=== PATIENT | female | born 1995 | race Caucasian/White ===

== ENCOUNTER 2018-09-22 23:19 | Emergency (ER) | payer MEDICAID, SELFPAY ==
[2018-09-22 23:23] VITALS: BP 144/84; PULSE 94; RESP 16; TEMP 36.6; O2SAT 98; BMI 44.3
[2018-09-23] MEDS: hydrOXYzine PAM 25 MG Capsule PO (00:16)
[2018-09-23 00:23] LABS: Absolute Lymphocyte Count 3.55 X10^3/uL (0.83-4.51); Basophil# 0.05 X10^3/uL; Basophil% 0.4 % (0-1); Eosinophil# 0.35 X10^3/uL; Eosinophils% 2.6 % (0-5); Hematocrit 39.1 % (37-47); Lymphocyte # 3.55 X10^3/ul (4.0); Lymphocyte % 26.5 % (19-41); Mean Corp Hgb Conc 33.2 g/dL (32-36); Mean Corpuscular Hgb 28.9 pg (27.0-32.0); Mean Corpuscular Volume 86.9 fL (81-99); Mean Platelet Vol. 9.4 fl (6.2-12.0); Monocyte# 0.94 X10^3/uL; NRBC Flagged by Analyzer 0 % (0-5); Neutrophil # 8.48 X10^3/uL (2.7-7.7); Neutrophil % 63.3 % (47-70); Platelet Count 279 K/mm3 (150-450); RBC Distribution Width CV 12.2 % (11.6-14.6); RBC Distribution Width SD 38.9 fl (35.1-43.9); White Blood Count 13.4 K/mm3 (4.4-11.0)
[2018-09-23 00:31] LABS: Amphetamine Urine VISTA NEGATIVE (<1000 ng/mL); Barbiturate Urine VISTA NEGATIVE (< 200 ng/mL); Benzodiazepine Urine VISTA NEGATIVE (< 200 ng/mL); Cocaine Urine VISTA NEGATIVE (< 300 ng/mL); Ecstacy Urine VISTA NEGATIVE (< 500 ng/mL); Methadone Urine VISTA NEGATIVE (< 300 ng/mL); PCP Urine VISTA NEGATIVE (< 25 ng/mL); THC Urine VISTA POSITIVE (< 50 ng/mL); Vista UDS pH Range 6
[2018-09-23 00:41] LABS: Anion Gap 5 (5-15); BUN 9 mg/dL (7-18); BUN/Creat Ratio 14.9 RATIO (10-20); Calcium,Total 8.4 mg/dL (8.5-10.1); Chloride 109 mmol/L (98-107); EST Glomerular Filtration Rate 128 mL/min (>60); Est Glom Filt Rate - Afr Amer 155 mL/min (>60); Estimated Creatinine Clearance 139.38 ml/min; Glucose 94 mg/dL (74-106); Potassium 3.5 mmol/L (3.5-5.1); Sodium Level 138 mmol/L (136-145)
[2018-09-23 00:45] LABS: Internal QC Validated? YES +Cl - CLEAR BKGD; Pregnancy, Serum, hCG Quali. NEGATIVE Negative
--- NOTE | 2018-09-23 00:53 | NURSING ---
CALLED CRISIS AT [id number]
[2018-09-23 01:01] VITALS: PULSE 77; RESP 16; O2SAT 97
--- NOTE | 2018-09-23 01:42 | ED.RN ---
crisis here to see patient at this time
--- NOTE | 2018-09-23 01:48 | ED.VISSUMM ---
- ER Visit Summary Date of Service: 09/23/18 Chief Complaint: Suicidal ideation History of Present Illness: The patient is a 23 F who presents with suicidal thoughts. She has a history of depression and anxiety. She states she has been off of her antidepressant for about 2 weeks. Over last 3 days she has had suicidal thoughts but denies having any plan. She states she is not actively suicidal that she does not intend act. She does not feel like she is a risk to herself. She states she did restart her antidepressant today and feels somewhat better. She states she really just think she needs medicated. She also is asking for help with a local psychiatrist as she does not currently have a psychiatrist locally. Physical Examination: Afebrile vitals unremarkable Patient cooperative smiling and laughing during the history and exam Heart regular rate and rhythm Lungs are clear Abdomen soft Alert Patient endorses suicidal thoughts without plan. Test Results: Labs notable for white count 13.4. negative. Drug screen positive for cannabinoids. Alcohol normal. Emergency Department Course and Treatment: Patient was requesting something for anxiety and was given Vistaril. Patient was evaluated by crisis. We agreed the patient is safe for a safety plan and close outpatient follow-up. The patient was contracted for safety and has an appointment tomorrow with the counseling center. Patient discharged. Treatment Plan: [] Disposition: Discharge Impression: Depression Suicidal ideation This note was generated with [employer] dictation software. It may contain incorrect words, spelling, and punctuation that were not noted in review of the chart prior to signing ED Disposition - Plan for ED Patient: Referrals: Care Physician,No Primary [Primary Care Provider] -
--- NOTE | 2018-09-23 02:17 | ED.DEP ---
ED Disposition - Plan for ED Patient: Instructions: Depression, CONTRACT, No Harm Referrals: Care Physician,No Primary [Primary Care Provider] - Counseling,Center [GROUP OF PHYSICIANS] -
[2018-09-23 02:38] VITALS: BP 137/80; PULSE 82; RESP 16; O2SAT 96
== END 2018-09-23 04:31 | disposition home or self-care (01) ==
PROVIDERS: Emergency Provider Emergency Medicine
DX: F32.9 Major depressive disorder, single episode, unspecified (principal); R45.851 Suicidal ideations; F41.9 Anxiety disorder, unspecified; F12.90 Cannabis use, unspecified, uncomplicated; Z72.0 Tobacco use
CPT/HCPCS: 36415; 80048; 80307; 80320; 84703; 85025; 99284; A4216; G0480

== ENCOUNTER 2018-11-02 21:35 | Emergency (ER) | payer MEDICAID, SELFPAY ==
[2018-11-02 21:36] VITALS: BP 124/74; PULSE 73; RESP 18; TEMP 36.1; O2SAT 98; BMI 43.8
--- NOTE | 2018-11-02 21:50 | ED.VISSUMM ---
- ER Visit Summary Date of Service: 11/02/18 Chief Complaint: Back pain History of Present Illness: The patient is a 23 F who has left lumbar back pain. Started 4 days ago. She was lifting things when this started. She has sharp pain in the left lumbar region. Does not radiate. No bowel or bladder incontinence. No numbness or tingling. She states it feels like spasms. She has tried ibuprofen, Tylenol, ice and heat without any relief. Physical Examination: Vital signs reviewed. Back exam reveals left lumbar paraspinal tenderness to palpation. There is no midline tenderness. Her neurologic exam is normal. Test Results: None performed Emergency Department Course and Treatment: Patient will be treated with Norflex and Toradol here. Naproxen and Flexeril for home. She will continue ice and heat Treatment Plan: [] Disposition: Discharge Impression: lumbar strain This note was generated with [employer] dictation software. It may contain incorrect words, spelling, and punctuation that were not noted in review of the chart prior to signing ED Disposition - Plan for ED Patient: Referrals: [facility] Doctor,Out of [Primary Care Provider] -
--- NOTE | 2018-11-02 21:51 | ED.DEP ---
ED Disposition - Plan for ED Patient: Disposition: Home or Assisted Living Instructions: BACK PAIN (Acute or Chronic) Prescriptions: cycloBENZAPRine HCl [Flexeril] 10 mg PO TID PRN #20 tab PRN Reason: Muscle Spasm Prescription Printed Naproxen [Naprosyn] 500 mg PO BID PRN #20 tab Prescription Printed Referrals: [facility] Doctor,Out of [Primary Care Provider] -
[2018-11-02] MEDS: Ketorolac 60 MG/2 ML Vial IM (21:56)
[2018-11-02] MEDS: Orphenadrine 60 MG/2 ML Ampul IM (21:56)
== END 2018-11-02 22:39 | disposition home or self-care (01) ==
PROVIDERS: Emergency Provider Emergency Medicine
DX: S39.012A Strain of muscle, fascia and tendon of lower back, initial encounter (principal); X50.9XXA Other and unspecified overexertion or strenuous movements or postures, initial encounter; Y93.9 Activity, unspecified; Y92.9 Unspecified place or not applicable; F32.9 Major depressive disorder, single episode, unspecified; Z79.899 Other long term (current) drug therapy; Z72.0 Tobacco use
CPT/HCPCS: 96372; 99282

== ENCOUNTER 2018-11-24 17:46 | Emergency (ER) | payer MEDICAID, SELFPAY ==
[2018-11-24 17:48] VITALS: BP 124/68; PULSE 101; RESP 16; TEMP 36.9; O2SAT 95; BMI 44.6
--- NOTE | 2018-11-24 18:41 | CT_ITS ---
HISTORY:UMBILICAL PAIN,PT STATES SHE HAS KNOWN HERNIA,ELEVATED WBC,PREG TEST WAS NEGATIVEHX:ASTHMA UMBILICAL PAIN,PT STATES SHE HAS KNOWN HERNIA,ELEVATED WBC,PREG TEST WAS NEGATIVEHX:ASTHMA TECHNIQUE: Helically acquired images were obtained of the abdomen and pelvis following IV contrast. A radiation dose optimization technique was used for this scan. IV Contrast dosage and agent:100ML Isovue 300 Oral contrast: Yes COMPARISON: None FINDINGS: # of images incl. paperwork: 477 LOWER CHEST: Lung bases are clear. No cardiomegaly or pericardial effusion observed. LIVER: Homogeneous. No focal mass. Hepatomegaly. GALLBLADDER AND BILIARY TREE: No calcified gallstones. There is no gallbladder distension or wall edema. No intra- or extrahepatic biliary ductal dilation. KIDNEYS AND URETERS: Normal renal size and position. There is no hydronephrosis. ADRENAL GLANDS: Non-enlarged. SPLEEN: Normal size without focal cystic or solid mass. PANCREAS: No focal cystic or solid mass. BOWEL: The stomach is fluid-filled Small bowel is unremarkable There is no mechanical obstruction No diverticulitis The appendix is unremarkable LYMPH NODES: No enlarged mesenteric or retroperitoneal lymph nodes. PERITONEUM: No ascites or free air. No other fluid collection. VESSELS: Aorta is non-dilated. URINARY BLADDER: Incompletely distended, otherwise grossly unremarkable. REPRODUCTIVE ORGANS: There is a right adnexal cyst measuring approximately 1.7 cm ABDOMINAL WALL: Fat-containing umbilical hernia. There is fat stranding within the hernia. The neck measures approximately 1.2 cm craniocaudad by approximately 1 cm transverse BONES: no acute osseous abnormality. There is an enthesophyte at the insertion of the iliopsoas tendon on the lesser tuberosity of the right femur CT/Abdomen/Pelvis WITH Contrast IMPRESSION: Fat-containing umbilical hernia with fat stranding within the hernia. Correlate clinically for reducibility Hepatomegaly Right adnexal cyst measuring 1.7 cm Individualized dose optimization techniques were used for this CT. at 2112 Reported and signed by: Valerie Bland DO Electronically Signed: Valerie Bland DO at 21:11 EDT Tel , Service support ,
--- NOTE | 2018-11-24 18:42 | ED.DCSUM_ITS ---
- ER Visit Summary Date of Service: 11/24/18 Chief Complaint: Umbilical hernia pain History of Present Illness: The patient is a 23 F who presents with umbilical hernia pain that began yesterday. Patient states she has had the umbilical hernia for quite some time. Patient states the pain began last night. Patient describes her pain is sharp. Patient states her pain is worse with bending forward. Patient states she had one episode of nausea and vomiting yesterday. Patient also states she had an episode of diarrhea yesterday. Patient denies any dysuria or hematuria. Patient admits to subjective fevers and chills. Physical Examination: Vital signs are stable. Patient is afebrile. Patient is in no acute distress. Oral mucosa is pink and moist. Neck is supple. Trachea is midline. There is no JVD noted. Heart was regular rate and rhythm. Lungs are clear and equal bilaterally. Abdomen is soft. Bowel sounds are normal. There is tenderness over the umbilical area with an umbilical hernia noted. There is no erythema. Cranial nerves II through XII are intact. There are no focal motor or sensory deficits noted. Test Results: CBC showed a slight leukocytosis of 13.6. Comprehensive metabolic profile was essentially within normal limits. Serum hCG was negative. CT scan of the abdomen and pelvis was obtained. There is a fat-containing umbilical hernia but there is no bowel entrapment. Emergency Department Course and Treatment: Patient was given IV fluids, morphine, and Zofran. Patient was given a repeat dose of morphine. Patient was feeling better after this. Ice pack was applied to the umbilical area. Patient was laid flat. The hernia was able to be reduced. She felt better after this. Patient was referred to Dr. More for general surgery. Patient was instructed to follow-up with her primary care physician as well as Dr. More in 5 to 7 days. Patient understood and was agreeable with the plan. All questions were answered. Disposition: Discharge home Impression: 1. Umbilical hernia This note was generated with [employer] dictation software. It may contain incorrect words, spelling, and punctuation that were not noted in review of the chart prior to signing ED Disposition - Plan for ED Patient: Disposition: Home or Assisted Living Diagnosis: Umbilical hernia Instructions: HERNIA (Inguinal, Ventral, Umbilical) Referrals: [facility] Doctor,Out of [Primary Care Provider] - 5-7 Days Aba More MD [STAFF PHYSICIAN] - 5-7 Days
[2018-11-24 19:11] LABS: Absolute Lymphocyte Count 3.65 X10^3/uL (0.83-4.51); Absolute Neutrophil Count 7.8 X10^3/uL (2.0-7.7); Basophil# 0.05 X10^3/uL; Basophil% 0.4 % (0-1); Eosinophil# 0.81 X10^3/uL; Hematocrit 44.8 % (37-47); Hemoglobin 14.6 g/dL (12.0-15.0); Lymphocyte # 3.65 X10^3/ul (4.0); Lymphocyte % 26.9 % (19-41); Mean Corp Hgb Conc 32.6 g/dL (32-36); Mean Platelet Vol. 9.6 fl (6.2-12.0); Monocyte# 1.17 X10^3/uL; Monocyte% 8.6 % (0-10); NRBC Flagged by Analyzer 0 % (0-5); Neutrophil # 7.83 X10^3/uL (2.7-7.7); Neutrophil % 57.8 % (47-70); Platelet Count 292 K/mm3 (150-450); RBC Distribution Width CV 12.9 % (11.6-14.6); RBC Distribution Width SD 40.2 fl (35.1-43.9); Red Blood Count 5.21 M/mm3 (4.2-5.4); White Blood Count 13.6 K/mm3 (4.4-11.0)
[2018-11-24] MEDS: Ondansetron 4 MG/2 ML Vial IV (19:15)
[2018-11-24] MEDS: Morphine 4 MG/ML Syringe IV ×2 (19:15→21:13)
[2018-11-24 19:20] LABS: ALB/GLOB Ratio 0.9 RATIO (0.9-2.4); AST(SGOT) 16 U/L (15-37); Alanine Aminotransfer ALT/SGPT 24 U/L (13-56); Albumin, Serum 3.3 g/dL (3.2-5.0); Alkaline Phosphatase 48 U/L (45-117); Anion Gap 5 (5-15); BUN 10 mg/dL (7-18); BUN/Creat Ratio 15.8 RATIO (10-20); Calcium,Total 8.8 mg/dL (8.5-10.1); Chloride 110 mmol/L (98-107); Creatinine, Serum 0.63 mg/dL (0.55-1.02); EST Glomerular Filtration Rate 122 mL/min (>60); Est Glom Filt Rate - Afr Amer 147 mL/min (>60); Estimated Creatinine Clearance 132.75 ml/min; Globulin 3.6 g/dL (2.2-4.2); Glucose 82 mg/dL (74-106); Potassium 3.6 mmol/L (3.5-5.1); Protein, Total 6.9 g/dL (6.4-8.2); Sodium Level 142 mmol/L (136-145)
[2018-11-24 19:24] VITALS: RESP 18
[2018-11-24 19:32] VITALS: PULSE 82; RESP 20
[2018-11-24] MEDS: Albuterol 2.5 MG/3 ML VIAL.NEB. INHALATION (19:32)
[2018-11-24 20:44] LABS: Internal QC Validated? YES +Cl - CLEAR BKGD; Pregnancy, Serum, hCG Quali. NEGATIVE Negative
[2018-11-24 22:42] VITALS: BP 99/68; PULSE 84; RESP 16; O2SAT 96
== END 2018-11-24 22:43 | disposition home or self-care (01) ==
PROVIDERS: Emergency Provider Emergency Medicine
DX: K42.9 Umbilical hernia without obstruction or gangrene (principal); J34.89 Other specified disorders of nose and nasal sinuses; R05 Cough; R68.83 Chills (without fever); R11.2 Nausea with vomiting, unspecified; R19.7 Diarrhea, unspecified; E66.9 Obesity, unspecified; F32.9 Major depressive disorder, single episode, unspecified; Z79.899 Other long term (current) drug therapy
CPT/HCPCS: 74177; 80053; 84703; 85025; 94640; 96374; 96375; 96376; 99283; Q9967; A4216; J2405

== ENCOUNTER 2019-04-17 18:51 | Emergency (ER) | payer MEDICAID, SELFPAY ==
[2019-04-17 18:52] VITALS: BP 142/83; PULSE 90; RESP 17; TEMP 37.1; O2SAT 97; BMI 44.4
--- NOTE | 2019-04-17 19:38 | ED.DCSUM_ITS ---
History of Present Illness Chief Complaint: Weakness Informant: Patient Onset: Days - 3 days Current Severity: Mild Maximum Severity: Moderate Narrative: Patient presents with 3-day history of body aches, subjective fever, chills, diarrhea. She works at a [employer] where she reports multiple residents have had influenza. Past Medical History - Allergies and Home Meds Allergies/Adverse Reactions: Allergies sulfamethoxazole [From Bactrim] Adverse Reaction (Verified 04/17/19 18:51) Hives trimethoprim [From Bactrim] Adverse Reaction (Verified 04/17/19 18:51) Hives Primary Care Physician: Daniele Doctor,Out of [NON-STAFF] - Lives: Spouse/ Significant Other Smoking Status: Current every day smoker Review of Systems General: Reports: Chills, Fever, Subjective Eyes: Denies: Visual changes - bilaterally ENT: Denies: Bilateral ear pain Cardiovascular: Denies: Chest pain Respiratory: Reports: Cough - Minimal cough, Sputum Gastrointestinal: Reports: Diarrhea. Denies: Abdominal pain, Nausea, Vomiting Musculoskeletal: Reports: Myalgias Skin: Denies: Rash Neurological: Denies: Headache Endocrine: Denies: Polyuria, Polydipsia Allergy: Denies: Uticaria Physical Exam Vital Signs/Narrative: Vital Signs Temp Pulse Resp BP Pulse Ox 04/17/19 18:52 98.8 F 90 17 142/83 H 97 Inital Vital Signs reviewed: Yes General: Well nourished, Well developed Head: Normocephalic ENT: Moist mucous membranes Neck: Supple Cardiovascular: Regular rate, Regular rhythm Respiratory: No distress, CTA bilaterally Abdomen: Soft, Nontender, Normal bowel sounds Skin: Normal color Neurological: Alert, Oriented x3 Psychological: Normal affect Diagnostic/Tx/Re-eval Chest X-Ray - ED: 1 View, Read by ED Physician, Normal, Heart, Lungs, Mediastinum 04/17/19 21:04 Chest 1 View (Portable) [RAD] Stat 04/17/19 19:43 Mucosa - Nose Influenza Types A,B Direct FA (YUMIKO) - Final Laboratory Results 04/17/19 04/17/19 04/17/19 19:45 20:00 20:00 WBC 6.6 RBC 5.11 Hgb 14.4 Hct 44.5 MCV 87.1 MCH 28.2 MCHC 32.4 RDW Std Deviation 39.7 RDW Coeff of Franco 12.4 Plt Count 220 MPV 10.1 Immature Gran % (Auto) 0.200 Neut % (Auto) 42.5 L Lymph % (Auto) 43.3 H [place] % (Auto) 12.2 H Eos % (Auto) 1.5 Baso % (Auto) 0.3 Absolute Neuts (auto) 2.8 Absolute Lymphs (auto) 2.87 Nucleated RBC % 0 Sodium 139 Potassium 3.7 Chloride 109 H Carbon Dioxide 27.0 Anion Gap 3 L BUN 10 Creatinine 0.89 Estim Creat Clear Calc 93.97 Est GFR (MDRD) Af Amer 98 Est GFR (MDRD) Non-Af 81 BUN/Creatinine Ratio 11.2 Glucose 75 Calcium 8.7 Serum , Qual Urine Color Yellow Urine Clarity Sl. Cloudy Urine pH 5.0 Ur Specific [place] 1.025 Urine Protein 30 H Urine Glucose (UA) Normal Urine Ketones 5 H Urine Occult Blood 10 H Urine Nitrite Negative Urine Bilirubin Negative Urine Urobilinogen 1 H Ur Leukocyte Esterase 25 H Urine RBC 0-5 SEEN Urine WBC 0-5 SEEN Ur Squamous Epith Cells 10-25 SEEN Urine Bacteria 2+ Urine Mucus 0 SEEN 04/17/19 20:00 WBC RBC Hgb Hct MCV MCH MCHC RDW Std Deviation RDW Coeff of Franco Plt Count MPV Immature Gran % (Auto) Neut % (Auto) Lymph % (Auto) [place] % (Auto) Eos % (Auto) Baso % (Auto) Absolute Neuts (auto) Absolute Lymphs (auto) Nucleated RBC % Sodium Potassium Chloride Carbon Dioxide Anion Gap BUN Creatinine Estim Creat Clear Calc Est GFR (MDRD) Af Amer Est GFR (MDRD) Non-Af BUN/Creatinine Ratio Glucose Calcium Serum , Qual NEGATIVE Urine Color Urine Clarity Urine pH Ur Specific [place] Urine Protein Urine Glucose (UA) Urine Ketones Urine Occult Blood Urine Nitrite Urine Bilirubin Urine Urobilinogen Ur Leukocyte Esterase Urine RBC Urine WBC Ur Squamous Epith Cells Urine Bacteria Urine Mucus - Medical Decision Making Patient is given IV fluids and Toradol. She is also given a DuoNeb. On repeat evaluation patient is resting comfortably. Test results are discussed with her. She is given a work note for off work until free of fever for 24 hours. ED Disposition - Plan for ED Patient: Disposition: Home or Assisted Living Diagnosis: Viral syndrome Instructions: VIRAL SYNDROME (Adult) Referrals: [facility],Out of [NON-STAFF] - 3-5 Days if not improving
[2019-04-17] MEDS: 0.9% Normal Saline 1,000 ML 1000 ML IV (19:53)
[2019-04-17] MEDS: Ketorolac 30 MG/ML Syringe IV (19:53)
[2019-04-17 20:03] LABS: Mucous, Urine 0 SEEN /hpf (<or=2+)
[2019-04-17 20:04] LABS: Color, Urine Yellow (Yellow); Glucose, Dipstick Normal (Normal); Ketone-Dipstick 5 mg/dl (Negative); Leukocyte Esterase-Dipstick 25 /ul (Negative); Nitrite-Dipstick Negative (Negative); Occult Blood-Urine 10 /ul (Negative); Protein-Dipstick 30 mg/dl (Negative); Specific Gravity, Urine 1.025 (1.002-1.030); Urine Bilirubin Dipstick Negative (Negative); Urine Clarity Sl. Cloudy (Clear); Urine Urobilinogen 1 mg/dl (Normal)
[2019-04-17 20:05] VITALS: PULSE 86; RESP 20
[2019-04-17 20:05] LABS: Absolute Lymphocyte Count 2.87 X10^3/uL (0.83-4.51); Absolute Neutrophil Count 2.8 X10^3/uL (2.0-7.7); Basophil# 0.02 X10^3/uL; Basophil% 0.3 % (0-1); Eosinophils% 1.5 % (0-5); Hematocrit 44.5 % (37-47); Hemoglobin 14.4 g/dL (12.0-15.0); Lymphocyte # 2.87 X10^3/ul (4.0); Lymphocyte % 43.3 % (19-41); Mean Corp Hgb Conc 32.4 g/dL (32-36); Mean Corpuscular Hgb 28.2 pg (27.0-32.0); Mean Corpuscular Volume 87.1 fL (81-99); Mean Platelet Vol. 10.1 fl (6.2-12.0); Monocyte# 0.81 X10^3/uL; Monocyte% 12.2 % (0-10); NRBC Flagged by Analyzer 0 % (0-5); Neutrophil # 2.82 X10^3/uL (2.7-7.7); Neutrophil % 42.5 % (47-70); Platelet Count 220 K/mm3 (150-450); RBC Distribution Width CV 12.4 % (11.6-14.6); RBC Distribution Width SD 39.7 fl (35.1-43.9); Red Blood Count 5.11 M/mm3 (4.2-5.4); White Blood Count 6.6 K/mm3 (4.4-11.0)
[2019-04-17] MEDS: Ipratropium/Albuterol Sulfate 3 ML AMPUL.NEB INHALATION (20:05)
[2019-04-17 20:10] LABS: Bacteria 2+ /hpf (None Seen); Red Blood Cells-Urine 0-5 SEEN /hpf (0-5); Squamous Epithelial Cells - UA 10-25 SEEN /hpf (5-10); White Blood Cells 0-5 SEEN /hpf (0-5)
[2019-04-17 20:13] LABS: Internal QC Validated? YES +Cl - CLEAR BKGD; Pregnancy, Serum, hCG Quali. NEGATIVE Negative
[2019-04-17 20:17] LABS: BUN 10 mg/dL (7-18); Creatinine, Serum 0.89 mg/dL (0.55-1.02); Estimated Creatinine Clearance 93.97 ml/min; Glucose 75 mg/dL (74-106)
[2019-04-17 20:18] LABS: Anion Gap 3 (5-15); BUN/Creat Ratio 11.2 RATIO (10-20); Calcium,Total 8.7 mg/dL (8.5-10.1); Chloride 109 mmol/L (98-107); EST Glomerular Filtration Rate 81 mL/min (>60); Est Glom Filt Rate - Afr Amer 98 mL/min (>60); Potassium 3.7 mmol/L (3.5-5.1); Sodium Level 139 mmol/L (136-145)
--- NOTE | 2019-04-17 21:04 | RAD_ITS ---
STUDY: X-RAY CHEST REASON FOR EXAM: Female, 23 years old. FLU LIKE SYMPTOMS TECHNIQUE: Single AP portable view of the chest. COMPARISON: None. FINDINGS: The lungs are clear and expanded. There is no demonstrated pleural abnormality. Normal size heart. Normal mediastinum and willie. Normal visualized pulmonary arteries. Normal visualized aortic arch and descending thoracic aorta. Normal visualized thoracic spine. Normal visualized ribs, clavicles, and shoulders. There is no demonstrated abnormality of the visualized soft tissue structures of the upper abdomen. RAD/Chest 1 View (Portable) IMPRESSION: Normal x-ray examination of the chest. Electronically Signed: Ian Rodríguez DO at 21:31 EST Tel , Service support ,
[2019-04-17 21:17] VITALS: BP 134/75; PULSE 78
== END 2019-04-17 21:19 | disposition home or self-care (01) ==
PROVIDERS: Emergency Provider Emergency Medicine
DX: B34.9 Viral infection, unspecified (principal); R68.83 Chills (without fever); R05 Cough; R19.7 Diarrhea, unspecified; M79.10 Myalgia, unspecified site; F17.200 Nicotine dependence, unspecified, uncomplicated
CPT/HCPCS: 71045; 80048; 81001; 84703; 85025; 87804; 94640; 96361; 96374; 99283; J7030; A4216

== ENCOUNTER 2019-08-08 04:43 | Emergency (ER) | payer MEDICAID, SELFPAY ==
[2019-08-08 04:44] VITALS: BP 145/85; PULSE 72; RESP 18; TEMP 36.7; O2SAT 99; BMI 47.0
--- NOTE | 2019-08-08 04:59 | ED.VIS.GEN ---
History of Present Illness Chief Complaint: Anxiety Informant: Patient Onset: Today Current Severity: Mild Maximum Severity: Moderate Narrative: Patient presents via EMS secondary to anxiety. Patient states she is a history of anxiety. She had previously been on medical marijuana but 3 months ago switched to Xanax. Last week her doctor increased her dose to 2 mg twice a day as needed. She filled and picked up the prescription on August 04. Patient states that she awoke this morning with a panic attack. She reached for her pills that she keeps on her bedside stand and there were none there. She then got up and went to her pharmacy bag where she states the 2 full bottles were that she just picked up and they were missing. Patient states that she and her ex- were outside with her daughter earlier in the day and she is concerned someone came in and stole the medication. She states that there is nothing else missing that she has noticed from her home. - Past Medical History (1) Cerebral palsy Status: Chronic (2) Anxiety Status: Chronic (3) Depression Status: Chronic (4) Asthma Status: Chronic Past Medical History - Allergies and Home Meds Allergies/Adverse Reactions: Allergies sulfamethoxazole [From Bactrim] Adverse Reaction (Verified 08/08/19 04:47) Hives trimethoprim [From Bactrim] Adverse Reaction (Verified 08/08/19 04:47) Hives Primary Care Physician: NOT,DEFINED [Primary Care Provider] - Prior records reviewed: Yes Lives: With Family Smoking Status: Current some day smoker Review of Systems General: Denies: Chills, Fever Eyes: Denies: Visual changes - bilaterally ENT: Denies: Bilateral ear pain Cardiovascular: Denies: Chest pain Respiratory: Reports: Dyspnea. Denies: Cough Gastrointestinal: Denies: Abdominal pain, Nausea, Vomiting, Diarrhea Musculoskeletal: Denies: Extremity Pain Skin: Denies: Rash Psych: Reports: Anxiety Hematologic: Denies: Easy bruising, Easy bleeding Allergy: Denies: Uticaria Physical Exam Vital Signs/Narrative: Vital Signs Temp Pulse Resp BP Pulse Ox 08/08/19 04:44 98.1 F 72 18 145/85 H 99 Inital Vital Signs reviewed: Yes General: Well nourished, Well developed Head: Normocephalic ENT: Moist mucous membranes Neck: Supple Cardiovascular: Regular rate, Regular rhythm Respiratory: No distress, CTA bilaterally Abdomen: Soft, Nontender Extremities: Nontender Skin: Normal color Neurological: Alert, Oriented x3, Normal Strength, Normal Sensation Psychological: - - Anxious Diagnostic/Tx/Re-eval - Medical Decision Making Patient's most recent prescription was verified to the external medication review in [employer]. She is given 2 mg of p.o. Xanax here. I did advise her that I could not provide a refill for her. She needs to contact her physician in the morning. ED Disposition - Plan for ED Patient: Disposition: Home or Assisted Living Diagnosis: Anxiety Instructions: ED Panic Attack
[2019-08-08] MEDS: ALPRAZolam 0.5 MG Tablet 2 MG PO (05:09)
[2019-08-08 05:37] VITALS: BP 146/89; PULSE 77; RESP 17; O2SAT 99
--- NOTE | 2019-08-08 15:00 | CM.ED ---
SOCIAL WORK INFORMANT: DR. ARNETT REASON FOR REFERRAL: RESOURCES PATIENT WAS SEEN IN ED EARLY THIS MORNING. REFERRAL FOR RESOURCES. SPOKE WITH PATIENT OVER THE PHONE. PATIENT DISCUSSED MENTAL HEALTH HISTORY. PATIENT STATING IS PRESCRIBED XANAX AND IT WAS RECENTLY STOLEN FROM HER HOME. PATIENT REPORTS PLANS TO OBTAIN A LOCK BOX THIS DAY. PATIENT STATES HAS ALREADY BEEN IN CONTACT WITH [facility] [employer] AND HAS BEEN IN COUNSELING WITH THEM BEFORE. REVIEWED [facility] AND PROVIDED PATIENT WITH CONTACT NUMBERS FOR [facility] AND [facility] PER REQUEST. THIS WORKER OFFERED TO MAIL OUT RESOURCE LISTS. PATIENT THANKFUL FOR ALL INFORMATION. NO FURTHER QUESTIONS OR CONCERNS AT THIS TIME. RESOURCE LIST MAILED TO PATIENT THIS DAY. Kellee ZUNIGA, ASSEMBLER GARMENT FORM, TEA AND SPICE SUPERVISOR.
== END 2019-08-08 06:01 | disposition home or self-care (01) ==
PROVIDERS: Emergency Provider Emergency Medicine
DX: F41.9 Anxiety disorder, unspecified (principal); F32.9 Major depressive disorder, single episode, unspecified; G80.9 Cerebral palsy, unspecified; J45.909 Unspecified asthma, uncomplicated; Z79.899 Other long term (current) drug therapy; F17.200 Nicotine dependence, unspecified, uncomplicated
CPT/HCPCS: 99284

== ENCOUNTER 2019-08-22 12:36 | Emergency (ER) | payer MEDICAID, SELFPAY ==
[2019-08-22 12:38] VITALS: BP 114/82; PULSE 69; RESP 16; TEMP 37.1; O2SAT 98; BMI 45.3
--- NOTE | 2019-08-22 12:57 | ED.DCSUM_ITS ---
- ER Visit Summary Date of Service: 08/22/19 Chief Complaint: [Back pain] History of Present Illness: The patient is a 24 F [presents to the emergency department complaint of back pain is her about a month and a half ago. Patient states that she was doing some gardening and carrying some 45 pound bags. Jose lópez's been seen by her chiropractor who told her the pain was coming from her L4-L5 region. Patient states that the pain is so severe at times and her back spasms that it causes her to fall and she is fallen x4 this week. She denies any pain rating down her legs. She denies change in bowel or bladder function. She denies urinary symptoms. She has history of cerebral palsy, anxiety, depression, and asthma.] Physical Examination: [HEENT-PERRLA, EOMI. Cranial nerves II through XII grossly intact. TMs clear. Mucous membranes moist. No adenopathy. Cardiovascular-regular rate and rhythm without murmur or ectopy Lungs-clear to auscultation, chest wall stable without crepitus or subcu emphysema Abdomen-normoactive bowel sounds, soft, nontender, no rebound or rigidity, no peritoneal signs. Back exam-patient has diffuse tenderness over lumbar paraspinal musculature as well as the lumbar spine. She has negative straight leg raises. Deep tendon reflexes are plus 2 out of 4 bilaterally at the patella Achilles. Patient has normal 5 extension. He has normal sensation to light touch. Extremities-intact ?4, normal range of motion, normal pulses, atraumatic] Test Results: [Rays of the lumbar spine were obtained and were read as normal by radiology] Emergency Department Course and Treatment: [He was given 1 [place] and one Flexeril p.o.] Treatment Plan: [She has a follow-up appointment with her primary care physician tomorrow. Patient will be given her x-rays on a disc to take with her. She will be given a prescription for Naprosyn, Flexeril, [place].] Disposition: [Discharged home in stable condition] Impression: [Atraumatic back pain] This note was generated with [employer] dictation software. It may contain incorrect words, spelling, and punctuation that were not noted in review of the chart prior to signing ED Disposition - Plan for ED Patient: Instructions: ED Spasm Back No Trauma Prescriptions: cycloBENZAPRine HCl [Flexeril] 10 mg PO TID PRN #20 tab PRN Reason: Muscle Spasm Prescription Printed Naproxen [Naprosyn] 500 mg PO BID PRN #20 tab Prescription Printed Hydrocodone Bitart/Apap 5-325 [[place] 5MG-325MG] 1 tab PO Q4H PRN PRN 2 Days #20 tab PRN Reason: Pain Prescription Printed Referrals: [facility],Out of [NON-STAFF] - 1 Day
--- NOTE | 2019-08-22 13:00 | DCINST.ED_ITS ---
ED Disposition - Plan for ED Patient: Instructions: ED Spasm Back No Trauma Prescriptions: cycloBENZAPRine HCl [Flexeril] 10 mg PO TID PRN #20 tab PRN Reason: Muscle Spasm Prescription Printed Naproxen [Naprosyn] 500 mg PO BID PRN #20 tab Prescription Printed Hydrocodone Bitart/Apap 5-325 [[place] 5MG-325MG] 1 tab PO Q4H PRN PRN 2 Days #20 tab PRN Reason: Pain Prescription Printed Referrals: [facility] Doctor,Out of [Primary Care Provider] - 1 Day
[2019-08-22] MEDS: cycloBENZAPRine HCl 10 MG Tablet PO (13:10)
[2019-08-22] MEDS: HYDROcodone Bitartrate/Apap 5/325 Tablet PO (13:10)
--- NOTE | 2019-08-22 13:16 | RAD_ITS ---
STUDY: X-RAY - LUMBAR SPINE REASON FOR EXAM: Female, 24 years old. PAIN IN LOWER BACK. PATIENT STATES NO RECENT INJURY. TECHNIQUE: 3 view(s) of the lumbar spine were obtained. COMPARISON: None FINDINGS: Normal lumbar lordosis. There is no substantial scoliosis. There is a normal alignment of the vertebrae. Normal vertebral bodies and endplates. Normal disc space heights. The soft tissue structures are unremarkable. RAD/Lumbar Spine 2 or 3 Views IMPRESSION: Normal x-ray examination of the lumbar spine. Electronically Signed: Francis Mattson, at 13:35 EDT , Service support ,
== END 2019-08-22 14:24 | disposition home or self-care (01) ==
LOC: ED 13:48
PROVIDERS: Emergency Provider Emergency Medicine
DX: M54.5 Low back pain (principal); G80.9 Cerebral palsy, unspecified; F32.9 Major depressive disorder, single episode, unspecified; F41.9 Anxiety disorder, unspecified; J45.909 Unspecified asthma, uncomplicated; Z79.899 Other long term (current) drug therapy; Z72.0 Tobacco use
CPT/HCPCS: 72100; 99285; A4216

== ENCOUNTER 2019-09-06 23:35 | Emergency (ER) | payer MEDICAID, SELFPAY ==
[2019-09-06 23:35] VITALS: BP 141/104; PULSE 88; RESP 16; TEMP 37.1; O2SAT 96; BMI 42.9
--- NOTE | 2019-09-06 23:48 | ED.VIS.GEN ---
History of Present Illness Chief Complaint: Back Informant: Patient Narrative: She stated she is having persistent pain in her left lower back. This is been something is been ongoing for several weeks now. She was in our emergency department 2 weeks ago with a negative lumbar x-ray series. She has been using Vicodin intermittently with minimal relief. Denies any radicular symptoms. She stated she has a history of cerebral palsy. She sees a chiropractor for back pain. She was referred to physical therapy. She has not seen her family doctor for this. She is never had an MRI of her back. Denies loss of bowel or bladder function. No injury. Current severity is moderate per patient. Worse by movements bending and twisting and lifting. - Past Medical History (1) Anxiety Status: Chronic (2) Asthma Status: Chronic (3) Cerebral palsy Status: Chronic (4) Depression Status: Chronic Past Medical History - Allergies and Home Meds Allergies/Adverse Reactions: Allergies sulfamethoxazole [From Bactrim] Adverse Reaction (Verified 09/06/19 23:38) Hives trimethoprim [From Bactrim] Adverse Reaction (Verified 09/06/19 23:38) Hives Primary Care Physician: Daniele Costello,Out of [Primary Care Provider] - Prior records reviewed: Yes Past Medical History: - - See problem list Surgical History: noncontributory Lives: With Family Smoking Status: Light Smoker (<10/day) Alcohol: None Drugs: None Review of Systems General: Denies: Chills, Fever, Sweats Eyes: Denies: Visual changes - bilaterally, Diplopia ENT: Denies: Rhinorrhea, Sore throat Cardiovascular: Denies: Chest pain, Palpitations Respiratory: Denies: Dyspnea, Cough, Dyspnea on exertion Gastrointestinal: Denies: Abdominal pain, Nausea, Vomiting, Diarrhea, Melena, Hematochezia Genitourinary: Denies: Dysuria, Hematuria, Frequency Musculoskeletal: Reports: Back pain. Denies: Extremity Pain Skin: Denies: Rash, Wounds Neurological: Denies: Headache, Weakness, Numbness Physical Exam Vital Signs/Narrative: Vital Signs Temp Pulse Resp BP Pulse Ox 09/06/19 23:35 98.7 F 88 16 141/104 H 96 General: Well nourished, Well developed, No Acute Distress Head: Normocephalic, Atraumatic Eyes: Perrl, EOMI ENT: Moist mucous membranes, No rhinorrhea Neck: Supple, Nontender Cardiovascular: Regular rate, Regular rhythm, No murmurs Respiratory: No distress, CTA bilaterally, Chest nontender Abdomen: Soft, Nontender, Nondistended, Normal bowel sounds Back: Normal Inspection, - - Tender to palpation left lower lumbar spine paraspinals. Decreased range of motion secondary to pain. Swelling deformity contusion bony step-off or other abnormality. Negative for: CVA tenderness, Spinal tenderness Extremities: Nontender, No edema Skin: Normal color, No rash Neurological: Alert, Oriented x3, Cranial nerves II-XII grossly intact, Normal Strength, Normal Sensation Psychological: Normal affect, Normal Mood Diagnostic/Tx/Re-eval - Medical Decision Making Patient had a normal x-ray for this 2 weeks ago. At this time I feel this is musculoskeletal left lower back pain. There is no radicular component. I do not think she needs an emergent MRI or imaging otherwise. Given a dose of morphine and Toradol. We will follow-up as an outpatient. We will continue her [place]. Will be given a referral to pain management. This appears to be chronic back pain. ED Disposition - Plan for ED Patient: Disposition: Home or Assisted Living Diagnosis: Chronic back pain Instructions: Possible Causes of Low Back or Leg Pain Prescriptions: Meloxicam [Mobic] 15 mg PO DAILY #15 tab Prescription Printed Referrals: Naomi Ordoñez MD [STAFF PHYSICIAN] -
[2019-09-06] MEDS: Ketorolac 30 MG/ML Syringe IM (23:55)
[2019-09-06] MEDS: Morphine 4 MG/ML Syringe IM (23:56)
[2019-09-07 00:34] VITALS: BP 136/80; PULSE 78; RESP 18; O2SAT 96
[2019-09-07] MEDS: Ondansetron ODT 4 MG Tablet 8 MG PO (01:14)
== END 2019-09-07 03:58 | disposition home or self-care (01) ==
LOC: ED 09-07 00:01
PROVIDERS: Emergency Provider Emergency Medicine
DX: M54.5 Low back pain (principal); G89.29 Other chronic pain; F41.9 Anxiety disorder, unspecified; G80.9 Cerebral palsy, unspecified; F32.9 Major depressive disorder, single episode, unspecified; J45.909 Unspecified asthma, uncomplicated; Z79.899 Other long term (current) drug therapy; F17.200 Nicotine dependence, unspecified, uncomplicated
CPT/HCPCS: 96372; 99284

== ENCOUNTER 2019-10-22 13:35 | Emergency (ER) | payer MEDICAID, SELFPAY ==
[2019-10-22 13:38] VITALS: BP 157/75; PULSE 84; RESP 17; TEMP 35.6; O2SAT 97; BMI 44.8
--- NOTE | 2019-10-22 15:00 | ED.VIS.BACK ---
History of Present Illness Chief Complaint: Back Informant: Patient Onset: Weeks Context: Gradual Onset Timing: Continuous Quality: Sharp, Aching Location: Lumbar Associated Symptoms: Tingling - left heel, Urinary Incontinence - urge incontinece x 1 year, no recent change Narrative: Patient is a 24-year-old female with history of anxiety, cerebral palsy and chronic back pain presenting with worsening back pain. Patient states he is currently seeing a chiropractor as well as her primary care doctor and is in physical therapy for her back pain. Patient states her chiropractor told her she had issues with L2-L4. She states she is had worsening pain for the past few weeks and is now having tingling of her left heel for the past week. She states she has sharp pain in her left lower back with her heel is touched. She is been taking Naprosyn and using heat and ice with no significant leaf of her pain. Patient states it feels like someone is punching her in the back and almost feels like labor pains. Patient does not think she is because she is on oral control pills. Patient denies any history of IV drug use or cancer. She denies any recent falls or injuries. Patient denies any paresthesias of her groin area. She denies any fecal incontinence. She states with past year she has had episodes of urge incontinence but this is not changed. She denies any weakness of her legs. She denies any other complaints at this time. Patient states she wants to figure out what is wrong with her and is tired of waiting for insurance to approve an MRI. Prior similar symptoms: Yes, With Prior Back Pain Past Medical History - Allergies and Home Meds Allergies/Adverse Reactions: Allergies sulfamethoxazole [From Bactrim] Adverse Reaction (Verified 10/22/19 13:38) Hives trimethoprim [From Bactrim] Adverse Reaction (Verified 10/22/19 13:38) Hives Primary Care Physician: VAUGHN CHATTERJEE [Other] Past Medical History: - - Cerebral palsy, chronic back pain, anxiety Surgical History: noncontributory Lives: Spouse/ Significant Other, With Family Smoking Status: Light Smoker (<10/day) Review of Systems General: Denies: Chills, Fever, Sweats Eyes: Denies: Visual changes - bilaterally, Diplopia ENT: Denies: Rhinorrhea, Sore throat Cardiovascular: Denies: Chest pain, Palpitations Respiratory: Denies: Dyspnea, Cough, Dyspnea on exertion Gastrointestinal: Denies: Abdominal pain, Nausea, Vomiting, Diarrhea, Melena, Hematochezia Genitourinary: Denies: Dysuria, Hematuria, Frequency Musculoskeletal: Reports: Back pain. Denies: Extremity Pain Skin: Denies: Rash, Wounds Neurological: Reports: Parasthesia - left heel. Denies: Headache, Weakness, Numbness Physical Exam Vital Signs/Narrative: Vital Signs Temp Pulse Resp BP Pulse Ox 10/22/19 13:38 96.1 F L 84 17 157/75 H 97 Inital Vital Signs reviewed: Yes General: Well nourished, Well developed Head: Normocephalic, Atraumatic Eyes: Perrl, EOMI ENT: Moist mucous membranes, No rhinorrhea Neck: Supple, Nontender Cardiovascular: Regular rate, Regular rhythm, No murmurs Respiratory: No distress, CTA bilaterally, Chest nontender Abdomen: Soft, Nontender, Nondistended, Normal bowel sounds Back: Normal Inspection, Paraspinal Tenderness - left lumbar, CVA tenderness - left, Negative SLR - Right, Negative SLR - Left. Negative for: Spinal tenderness Extremeties: Nontender, No edema. Negative for: Edema Skin: Normal color, No rash Neuro: Alert, Oriented, Normal Strength, Normal Sensation, Normal DTR, Normal Gait, - - 5 out of 5 strength with dorsi and plantar flexion laterally. Negative for: Parasthesia Psychological: Normal affect Diagnostic/Tx/Re-eval Laboratory Data 10/22/19 10/22/19 15:25 15:25 Urine Color Yellow Urine Clarity Sl. Cloudy Urine pH 6.5 Ur Specific [place] 1.015 Urine Protein Negative Urine Glucose (UA) Normal Urine Ketones 5 H Urine Occult Blood 10 H Urine Nitrite Negative Urine Bilirubin Negative Urine Urobilinogen 1 H Ur Leukocyte Esterase Negative Urine RBC 0-5 SEEN Urine WBC 0 SEEN Ur Squamous Epith Cells 0-5 SEEN Urine Bacteria RARE Urine Mucus 0 SEEN Urine Test Negative - Medical Decision Making Evaluated for exacerbation of her chronic back pain. She appears nontoxic in no acute distress. She has no focal neurologic deficits. I do not suspect cauda equina syndrome or any acute cord compression. Patient is given IM morphine for pain control as well as a Lidoderm patch and Flexeril. She has had significant improvement of her symptoms. Pain is in the left paraspinal region but almost bordering on the CVA area. I did check a urinalysis to rule out pyelonephritis. Urine is negative. Urinalysis shows 0-5 red blood cells no signs of infection. Her pain is very atypical for kidney stone and I do not think further stone work-up is indicated. Patient is instructed to follow-up with her primary care doctor. She is having questions about pain management and I did instruct her to follow-up with her primary care doctor for this or call her insurance to see which pain management doctors are in her network. Patient is counseled on signs and symptoms requiring return to the emergency room. Patient verbalizes agreement and understand this plan. Patient discharged home in stable and improved condition. ED Disposition - Plan for ED Patient: Disposition: Home or Assisted Living Diagnosis: Acute exacerbation of chronic low back pain Instructions: ED Back Pain Acute or Chronic Prescriptions: cycloBENZAPRine HCl [Flexeril] 10 mg PO TID PRN #20 tab PRN Reason: Muscle Spasm Prescription Printed Referrals: VAUGHN CHATTERJEE [Other] Additional Instructions: Continue to alternate ibuprofen and Tylenol for pain. If you found the Lidoderm patch helpful today you can buy 4% lidocaine patches [id number] at any drugstore. Thankfully, at this time you do not meet criteria to have an emergent MRI. Please continue to follow-up with your primary care doctor to work on scheduling an outpatient MRI and discuss pain management options.
[2019-10-22] MEDS: cycloBENZAPRine HCl 10 MG Tablet PO (15:18)
[2019-10-22] MEDS: morphine 8 MG/ML Syringe 6 MG IM (15:18)
[2019-10-22 15:32] LABS: Mucous, Urine 0 SEEN /hpf (<or=2+); White Blood Cells 0 SEEN /hpf (0-5)
[2019-10-22 15:39] LABS: Color, Urine Yellow (Yellow); Glucose, Dipstick Normal (Normal); Internal QC Validated? YES +Cl - CLEAR BKGD; Ketone-Dipstick 5 mg/dl (Negative); Leukocyte Esterase-Dipstick Negative /ul (Negative); Nitrite-Dipstick Negative (Negative); Occult Blood-Urine 10 /ul (Negative); Pregnancy, Urine Negative Negative; Protein-Dipstick Negative (Negative); Specific Gravity, Urine 1.015 (1.002-1.030); Urine Bilirubin Dipstick Negative (Negative); Urine Clarity Sl. Cloudy (Clear); Urine Urobilinogen 1 mg/dl (Normal); Urine pH 6.5 (5.0 - 8.0)
[2019-10-22 15:56] LABS: Bacteria RARE /hpf (None Seen); Red Blood Cells-Urine 0-5 SEEN /hpf (0-5); Squamous Epithelial Cells - UA 0-5 SEEN /hpf (5-10)
[2019-10-22] MEDS: Lidocaine 5% Patch 1 PATCH TOPICAL (16:28)
[2019-10-22 16:34] VITALS: BP 137/82; PULSE 78; RESP 16; O2SAT 93
== END 2019-10-22 16:35 | disposition home or self-care (01) ==
PROVIDERS: Emergency Provider Emergency Medicine
DX: M54.5 Low back pain (principal); G89.29 Other chronic pain; R20.2 Paresthesia of skin; N39.41 Urge incontinence; G80.9 Cerebral palsy, unspecified; F41.9 Anxiety disorder, unspecified; Z79.3 Long term (current) use of hormonal contraceptives; Z79.899 Other long term (current) drug therapy; F17.200 Nicotine dependence, unspecified, uncomplicated
CPT/HCPCS: 81001; 81025; 96372; 99282

== ENCOUNTER 2020-02-11 02:14 | Emergency (ER) | payer MEDICAID, SELFPAY ==
[2020-02-11 02:15] VITALS: BP 125/77; PULSE 83; RESP 16; TEMP 36.6; O2SAT 97; BMI 43.9
--- NOTE | 2020-02-11 02:35 | ED.VISSUMM ---
- ER Visit Summary Date of Service: 02/11/20 Chief Complaint: Acute on chronic atraumatic left hip pain History of Present Illness: The patient is a 24 F past medical history of premature with congenital abnormalities. History of mild cerebral palsy degenerative left hip disease, sciatica, anxiety and obesity. She has had prior reconstructive surgery on her right hip but not her left. She spoke to have an upcoming MRI on her left hip but she has not had it done yet. She sees physicians in [place] but she recently moved to this area. She denies any fall or trauma recently. She does stand a lot at work. She says she has chronic pain and just feels worse tonight. No fever no chills no redness. Physical Examination: Young female no acute distress vital signs stable afebrile. Lying on her right hip on her side. H EENT exam unremarkable. Neck nontender no lymphadenopathy. Lungs clear to auscultation bilaterally. Heart regular rhythm no murmur. Abdomen soft nontender normal bowel sounds no peritoneal signs. Obese. Extremities moves all 4. Specifically she has mild tenderness to the lateral left hip and left SI joint. She is able to flex and extend the left hip with discomfort. The left hip is not red, nor hot nor it does not appear to be swollen. There is no acute signs of a septic hip. She has normal motor strength of both lower extremities. Dorsi plantarflexion intact. Normal sensation. There is no signs of trauma. Her back is nontender except for left SI joint. She does have a positive straight leg raise on the left at about 15 to 30 degrees. There is no swelling of either lower extremity. Neurologically she is awake and alert with no focal motor deficits. Test Results: Acute left hip x-ray with pelvis shows no acute process. No fracture or dislocation. She has a shallow acetabular cup of the left hip. Chronic changes. View film read by myself. Emergency Department Course and Treatment: Acute on chronic left hip pain. I suspect is congenital and also degenerative arthritis. No signs of infection. No trauma. She was given 2 [place] here for pain. Treatment Plan: Anti-inflammatories for the acute sciatica. Ice to the area. Follow-up with her doctors. Disposition: discharge Impression: Acute on chronic atraumatic left hip pain Acute left sciatica History of congenital left hip structural abnormality This note was generated with Dragon dictation software. It may contain incorrect words, spelling, and punctuation that were not noted in review of the chart prior to signing ED Disposition - Plan for ED Patient: Referrals: [facility] Doctor,Out of [Primary Care Provider] -
--- NOTE | 2020-02-11 02:50 | RAD_ITS ---
STUDY: X-RAY - PELVIS AND LEFT HIP REASON FOR EXAM: Female, 24 years old. left hip pain x 2 weeks. pain progressively worsened after starting new job. hx of bilateral hip pain. TECHNIQUE: 3 views of the pelvis and hip. COMPARISON: None. FINDINGS: There is a non-specific bowel gas pattern. Normal visualized soft tissue structures. Normal bilateral iliac wings, sacroiliac joints and visualized sacrum. Normal bilateral superior and inferior pubic rami. Normal pubic symphysis. Normal bilateral ischial tuberosities. Abnormal shape of the left acetabulum with flattening of the acetabular curvature, most likely congenital. Mild deformity of the femoral head, likely congenital. Otherwise normal visualized femoral head. Normal acetabulum. Normal hip joint. RAD/HIP, UNI W/ Pelvis 2-3 Views IMPRESSION: Mild deformity involving the left acetabulum and left femoral head likely congenital. Otherwise no acute fracture or subluxation. Electronically Signed: Constanza Beard MD at 3:34 EST , Service support ,
[2020-02-11] MEDS: HYDROcodone Bitartrate/Apap 5/325 Tablet PO (03:02)
--- NOTE | 2020-02-11 03:12 | ED.DEP ---
ED Disposition - Plan for ED Patient: Disposition: Home or Assisted Living Instructions: ED Sciatica Referrals: [facility] Doctor,Out of [NON-STAFF] - 3-5 Days if not improving Additional Instructions: Your x-rays were unremarkable tonight. No acute changes. Anti-inflammatories for pain such as Motrin, Advil or ibuprofen. Ice to your hip and sciatic region. Follow-up with your physicians.
== END 2020-02-11 03:19 | disposition home or self-care (01) ==
PROVIDERS: Emergency Provider Emergency Medicine
DX: M25.552 Pain in left hip (principal); G89.29 Other chronic pain; M54.32 Sciatica, left side; Q65.89 Other specified congenital deformities of hip; M16.12 Unilateral primary osteoarthritis, left hip; E66.9 Obesity, unspecified; G80.9 Cerebral palsy, unspecified; F41.9 Anxiety disorder, unspecified; Z79.899 Other long term (current) drug therapy; F17.200 Nicotine dependence, unspecified, uncomplicated
CPT/HCPCS: 73502; 99283

== ENCOUNTER 2021-06-03 17:10 | Emergency (ER) | payer MEDICAID, SELFPAY ==
[2021-06-03 17:10] VITALS: BP 126/81; PULSE 103; RESP 16; TEMP 36.2; O2SAT 100; BMI 43.8
== END 2021-06-03 18:34 | disposition left against medical advice (07) ==
LOC: ED 18:44
DX: Z53.21 Procedure and treatment not carried out due to patient leaving prior to being seen by health care provider (principal)

== ENCOUNTER 2021-07-09 19:01 | Emergency (ER) | payer MEDICAID, SELFPAY ==
[2021-07-09 19:02] VITALS: BP 132/86; PULSE 80; RESP 14; TEMP 36.7; O2SAT 100; BMI 39.8
--- NOTE | 2021-07-09 19:41 | ED.VIS.FEGU ---
HPI HPI - Female History of Present Illness Chief Complaint: Female C/O Informant: patient Pain Pain: Positive for Pelvic Pain Onset: Yesterday Context: Gradual Onset Timing: Continuous Quality: Positive for Cramping Location: LLQ Current Severity: Mild Maximum Severity: Mild Worsened by: - (nothing) Relieved by: - (nothing but not taking anything for it) Bleeding Issue: Negative for Vaginal bleeding Associated Symptoms Associated Symptoms: Positive for Frequency; Negative for Dysuria P: 1 Narrative Narrative: Patient states lately her cycle has been irregular whereas it is usually regular, and she feels like her breasts are tender and she is having some mild discomfort and my left ovary that after further discussion feels like haresh that she has had regularly with her cycles in the past on the left, and she thought she was . She did a home test, she states she is not sure if she did it properly and the results were equivocal and she had trouble interpreting it. She has had some mild urinary frequency but no dysuria or hematuria. No other abdominal pain, no syncope or other systemic symptoms. She denies any vaginal bleeding or discharge, no recent injuries. She states she is wondering if she is really or not, and also she is on Xanax for her anxiety and wants to find an alternative for that if she is so she does not harm the baby. [facility] Medical History (Updated 07/09/21 @ 22:[address] Siddhartha Evans MD) Anxiety Asthma Cerebral palsy Depression Home Medications albuterol sulfate 2 puff INHALATION Q4H PRN PRN #1 inhaler 11/24/18 [Rx Last Taken Unknown] PNV cmb#95-ferrous fumarate-FA [ Multivitamins] 1 tab PO DAILY #30 tab 07/09/21 [Rx Last Taken Unknown] nitrofurantoin macrocrystal 100 mg PO BID #10 cap 07/09/21 [Rx Last Taken Unknown] Allergy/AdvReac Type Severity Reaction Status Date / Time sulfamethoxazole AdvReac Hives Verified 07/09/21 19:02 [From Bactrim] trimethoprim [From Bactrim] AdvReac Hives Verified 07/09/21 19:02 Social History Smoking Status: Former smoker ROS ROS ED Constitutional Constitutional ED: Denies chills or fever(s) Eyes Eyes: Denies change in vision or diplopia ENT ENT ED: Denies rhinorrhea or sore throat Cardiovascular Cardiovascular: Denies chest pain or palpitations Respiratory/Chest Respiratory/Chest: Denies cough or dyspnea Gastrointestinal Gastrointestinal: Reports as per HPI and abdominal pain; Denies diarrhea, nausea or vomiting Genitourinary Genitourinary ED: Reports urinary frequency; Denies dysuria or hematuria Musculoskeletal Musculoskeletal: Denies back pain or neck pain Integumentary Denies abscess or rash Neurologic Neurologic: Denies headache(s), paresthesias or weakness Psychiatric Psychiatric: Denies anxiety or suicidal thoughts EXAM Physical Exam Const Vital Signs: 07/09/21 19:02 Temperature 98.1 F Temperature Source Temporal Pulse Rate 80 Respiratory Rate 14 Blood Pressure 132/86 H Blood Pressure Mean 101 Pulse Ox 100 Oxygen Delivery Method Room Air Positive well nourished, well developed and obese Constitutional Narrative: Well-appearing and pleasant General Appearance ED: well developed and NAD Nutritional Appearance: obese HEENT Reports moist mucous membranes normocephalic and atraumatic Eyes PERRL and EOMs intact bilaterally Neck full ROM and supple Resp normal respiratory effort and clear to auscultation bilaterally Cardio regular rate, regular rhythm and no murmurs GI non-distended GI Narrative: Very mild discomfort with palpation in the lateral left pelvis/quadrant. No guarding or rebound tenderness. Auscultation: normoactive bowel sounds Palpation: soft Back/Spine no CVA tenderness General Back: other FROM Extremity normal to inspection General Extremety ED: Negative for edema, pulses abnormal or tenderness General Extremity: Negative for edema or pulses abnormal Neuro oriented x3, CN's II-XII intact bilaterally and no sensory deficits noted Sensorium / Orientation: awake and alert Motor Exam: strength 5/5 throughout Skin no rashes or lesions noted and no wounds MDM MDM MDM Narrative Medical decision making narrative: In addition to urinalysis which shows mixed signs of infection and no infection, I obtained a serum qualitative which was positive. Therefore since she is having left lower quadrant pain she was sent for ultrasound for further evaluation and to rule out ectopic and I sent a quantitative hCG which came back at [id number]. The ultrasound shows a single intrauterine measuring 5 weeks and 5 days, not able to see heart tones. This is of unknown significance right now, the differential includes could be an early and the heart tones are not visible yet, versus intrauterine demise and a missed . Regardless at this time, she will be placed on vitamins, Macrodantin, urine culture is sent, and given a local partnership marketing manager to follow-up with. There is a subchorionic hemorrhage visible on the ultrasound but she has not had any vaginal bleeding. Lab Data Attestation: I reviewed the patient's lab results. Labs: Laboratory Results - last 24 hr 07/09/21 07/09/21 07/09/21 19:20 19:59 19:59 HCG, Quant 8727 H Serum , Qual POSITIVE H Urine Color Yellow Urine Clarity Cloudy Urine pH 6.0 Ur Specific [place] 1.025 Urine Protein 30 H Urine Glucose (UA) Normal Urine Ketones 5 H Urine Occult Blood 25 H Urine Nitrite Positive H Urine Bilirubin Negative Urine Urobilinogen 1 H Ur Leukocyte Esterase 100 H Urine RBC 0 SEEN Urine WBC 0-5 SEEN Ur Squamous Epith Cells 5-10 SEEN Urine Bacteria 2+ Urine Mucus 2+ Radiography Diagnostic Testing: Clinical Impression(s) from Imaging Studies Obstetrics Ultrasound 07/09/21 20:24 IMPRESSION: 1. Single intrauterine gestational sac measuring 5 weeks and 5 days in gestation without demonstrated heart tones. 2. Evidence of a 6 mm x 4 x 4 mm subchorionic hemorrhage. 3. Normal uterus for early without fibroids. Closed cervix. 4. Presence of 4.3 cm diameter left ovarian cyst and a 2.4 cm diameter right ovarian cyst. 5. No evidence of ovarian solid mass lesions or torsion. 6. Debris was noted in the bladder. Electronically Signed: Dax Banegas MD at 21:47 EDT , Discharge Plan Triage Chief Complaint: Female C/O ED Provider: Siddhartha Evans Dx/Rx/DC Orders Clinical Impression: Early stage of , Acute left lower quadrant pain, Acute lower urinary tract infection Instructions: First Trimester Prescriptions: New nitrofurantoin macrocrystal 100 mg capsule 100 mg PO BID Qty: 10 RF: 0 PNV cmb#95-ferrous fumarate-FA [ Multivitamins] 28 mg iron- 800 mcg tablet 1 tab PO DAILY Qty: 30 RF: 0 Continued albuterol sulfate 1 INHALER inhaler 2 puff inhalation Q4H PRN PRN (Reason: Wheezing) Qty: 1 RF: 0 Discontinued alprazolam 2 MG tablet 4 mg PO BID PRN (Reason: Anxiety) RF: 0 Primary Care Provider: Care Physician,No Primary Referrals: Mishel Mackenzie DO [STAFF PHYSICIAN] - (call for follow-up appt within next week or so) Care Physician,No Primary [Primary Care Provider] - Disposition Disposition: Home, Self Care
[2021-07-09 19:55] LABS: Red Blood Cells-Urine 0 SEEN /hpf (0-5)
[2021-07-09 20:11] LABS: Color, Urine Yellow (Yellow); Glucose, Dipstick Normal (Normal); Ketone-Dipstick 5 mg/dl (Negative); Leukocyte Esterase-Dipstick 100 /ul (Negative); Nitrite-Dipstick Positive (Negative); Occult Blood-Urine 25 /ul (Negative); Protein-Dipstick 30 mg/dl (Negative); Specific Gravity, Urine 1.025 (1.002-1.030); Urine Bilirubin Dipstick Negative (Negative); Urine Clarity Cloudy (Clear); Urine Urobilinogen 1 mg/dl (Normal)
[2021-07-09 20:15] LABS: Internal QC Validated? YES +Cl - CLEAR BKGD
[2021-07-09 20:16] LABS: Pregnancy, Serum, hCG Quali. POSITIVE Negative
--- NOTE | 2021-07-09 20:17 | ED.RN ---
lab calls preg result. of + md aware
[2021-07-09 20:20] LABS: White Blood Cells 0-5 SEEN /hpf (0-5)
[2021-07-09 20:21] LABS: Bacteria 2+ /hpf (None Seen); Mucous, Urine 2+ /hpf (<or=2+); Squamous Epithelial Cells - UA 5-10 SEEN /hpf (5-10)
--- NOTE | 2021-07-09 20:24 | US_ITS ---
STUDY: FIRST TRIMESTER OBSTETRICAL ULTRASOUND EXAMINATION OF 9 HOURS ON 07/09/2021 REASON FOR EXAM: 26-year-old female in early with left lower quadrant pain. LMP: 05/25/2021. NIRMAL by LMP: 03/01/2022. TECHNIQUE: First trimester obstetrical ultrasound was performed via the transvaginal approach. TECHNICAL QUALITY: Adequate. PRIOR ULTRASOUND: None. FINDINGS: There is a normal size uterus measuring 9.65 x 5.9 cm in transverse diameter by 4.9 cm AP diameter. There is no evidence of uterine fibroids. An normal closed cervix is present. There is evidence of an intrauterine gestational sac with a measurement of 0.96 cm, compatible with gestational age of 5 weeks and 5 days. By last menstrual period, there is a projected gestational age of 6 weeks and 3 days. heart tones were demonstrated. There are findings of a small 6 mm x 4 mm x 4 mm subchorionic hemorrhage. The ovary measures 3.6 image 23.3 cm x 2.7 cm and is without evidence of torsion. 2.2 cm x 4 cm x 2.1 cm right ovarian simple cyst. There is no right ovarian solid mass lesions. The left ovary measures 6.1 cm x 4.36 x 3.8 cm with a 4.3 cm x 3.5 cm x 2.0 cm simple cyst. There is no evidence of left ovarian torsion or solid mass lesions. There is a small amount of debris within the bladder. US/Transvaginal w/Preg US IMPRESSION: 1. Single intrauterine gestational sac measuring 5 weeks and 5 days in gestation without demonstrated heart tones. 2. Evidence of a 6 mm x 4 x 4 mm subchorionic hemorrhage. 3. Normal uterus for early without fibroids. Closed cervix. 4. Presence of 4.3 cm diameter left ovarian cyst and a 2.4 cm diameter right ovarian cyst. 5. No evidence of ovarian solid mass lesions or torsion. 6. Debris was noted in the bladder. Electronically Signed: Dax Banegas MD at 21:47 EDT ,
[2021-07-09 21:06] LABS: hCG Titer Quant., Serum 8727 mIU/mL (1-3)
[2021-07-09] MEDS: Nitrofurantoin Macrocrystals 100 MG Capsule PO (22:31)
[2021-07-09 22:32] VITALS: BP 128/80; PULSE 82; RESP 16; O2SAT 99
== END 2021-07-09 22:34 | disposition home or self-care (01) ==
PROVIDERS: Emergency Provider Emergency Medicine; Visit Provider Emergency Medicine
DX: O23.41 Unspecified infection of urinary tract in pregnancy, first trimester (principal); G80.9 Cerebral palsy, unspecified; Z3A.01 Less than 8 weeks gestation of pregnancy; O99.211 Obesity complicating pregnancy, first trimester; E66.9 Obesity, unspecified; Z87.891 Personal history of nicotine dependence; O99.351 Diseases of the nervous system complicating pregnancy, first trimester; O99.511 Diseases of the respiratory system complicating pregnancy, first trimester; J45.909 Unspecified asthma, uncomplicated; O99.341 Other mental disorders complicating pregnancy, first trimester; F41.9 Anxiety disorder, unspecified
CPT/HCPCS: 76817; 81001; 84702; 84703; 87077; 87086; 87088; 87186; 99282; A4216

== ENCOUNTER → 2021-08-11 | Outpatient (CLI) | payer MEDICAID, SELFPAY ==
[2021-08-11 13:41] LABS: Absolute Lymphocyte Count 2.46 X10^3/uL (0.83-4.51); Absolute Neutrophil Count 7.2 X10^3/uL (2.0-7.7); Basophil# 0.01 X10^3/uL; Basophil% 0.1 % (0-1); Eosinophil# 0.17 X10^3/uL; Eosinophils% 1.6 % (0-5); Hematocrit 38.3 % (37-47); Lymphocyte # 2.46 X10^3/ul (0.83-4.51); Lymphocyte % 23.1 % (19-41); Mean Corp Hgb Conc 33.9 g/dL (32-36); Mean Corpuscular Hgb 29.7 pg (27.0-32.0); Mean Corpuscular Volume 87.4 fL (81-99); Mean Platelet Vol. 10.6 fl (6.2-12.0); Monocyte# 0.74 X10^3/uL; Monocyte% 6.9 % (0-10); NRBC Flagged by Analyzer 0 % (0-5); Neutrophil # 7.24 X10^3/uL (2.7-7.7); Neutrophil % 67.9 % (47-70); Platelet Count 267 K/mm3 (150-450); RBC Distribution Width CV 11.9 % (11.6-14.6); RBC Distribution Width SD 37.9 fl (35.1-43.9); Red Blood Count 4.38 M/mm3 (4.2-5.4); White Blood Count 10.7 K/mm3 (4.4-11.0)
[2021-08-12 09:33] LABS: HIV - WCH Non-Reactive (Nonreactive); Hepatitis B Surface Antigen Non-Reactive (Nonreactive); Hepatitis C Antibody Non-Reactive (Nonreactive); Rubella IgG Reactive (Nonreactive); Syphilis Antibodies Non-reactive
[2021-08-13 22:07] LABS: Chlamydia By Nucleic Acid AMP Negative (Negative)
[2021-08-13 22:54] LABS: Gonococcus By Nucleic Acid AMP Negative (Negative)
[2021-08-18 18:07] LABS: HPV Reflexed? NOT INDICATED
== END | disposition home or self-care (01) ==
LOC: WOBLAB 12:05
PROVIDERS: Visit Provider Student in an Organized Health Care Education/Training Program
DX: Z34.81 Encounter for supervision of other normal pregnancy, first trimester (principal); Z11.3 Encounter for screening for infections with a predominantly sexual mode of transmission; Z12.4 Encounter for screening for malignant neoplasm of cervix
CPT/HCPCS: 36415; 85025; 86703; 86762; 86780; 86803; 87077; 87086; 87088; 87186; 87340; 87491; 87591; 88175; G0145

== ENCOUNTER → 2021-09-15 | Outpatient (CLI) | payer MEDICAID, SELFPAY | END | disposition home or self-care (01) | LOC: LABSPEC 15:18 | PROVIDERS: Visit Provider Student in an Organized Health Care Education/Training Program | DX: Z34.82 Encounter for supervision of other normal pregnancy, second trimester (principal); R30.0 Dysuria | CPT/HCPCS: 87077; 87086; 87088; 87186 ==

== ENCOUNTER 2021-11-22 18:53 | Emergency (ER) | payer MEDICAID, SELFPAY ==
[2021-11-22] VITALS (9 sets, daily range): BP systolic 110–122; BP diastolic 54–85; PULSE 102–124; RESP 16–23; TEMP 36.7; O2SAT 94–100; BMI 37.5
--- NOTE | 2021-11-22 19:21 | EKG12_ITS ---
Test Reason : SOB Blood Pressure : / mmHG Vent. Rate : 103 BPM Atrial Rate : 103 BPM P-R Int : 134 ms QRS Dur : 080 ms QT Int : 332 ms P-R-T Axes : -02 034 043 degrees QTc Int : 434 ms Sinus tachycardia Otherwise normal ECG Confirmed by WAYNE CHANDLER, MARICRUZ ([id number]), index editor TED RADER ([id number]) on 11/24/2021 10:47:56 AM Referred By: Confirmed By:MARICRUZ BLACK MD
--- NOTE | 2021-11-22 19:23 | ED.VIS.DYS ---
HPI History of Present Illness Chief Complaint: Shortness of Breath Informant: patient Onset/Context/Timing Onset: Days Context: gradual Narrative Narrative: Patient present secondary shortness of breath and URI symptoms. Patient states her significant other had URI symptoms this week. He seems to be getting better. Patient started feeling ill a couple days ago and did not think much of it. Today she has had increased shortness of breath with asthma symptoms. She was using his inhaler without significant improvement. She had some chills but no measured fever. Patient is currently 24 weeks . She is been having normal movement today. [facility] Medical History Anxiety Asthma Cerebral palsy Depression Home Medications albuterol sulfate 90 mcg/actuation aerosol inhaler 2 puff inhalation Q4H PRN PRN Wheezing ##1 11/24/18 [Rx Last Taken Unknown] nitrofurantoin macrocrystal 100 mg capsule 100 mg PO BID #10 caps 07/09/21 [Rx Last Taken Unknown] vit no.95-ferrous fumarate 28 mg-folic acid 800 mcg tablet ( Multivitamins) 1 tab PO DAILY #30 tabs 07/09/21 [Rx Last Taken Unknown] albuterol sulfate 90 mcg/actuation aerosol inhaler (Ventolin HFA) 1 - 2 puff inhalation Q4H PRN PRN Wheezing ##1 11/22/21 [Rx Last Taken Unknown] prednisone 20 mg tablet 40 mg PO DAILY #8 tabs 11/22/21 [Rx Last Taken Unknown] Allergy/AdvReac Type Severity Reaction Status Date / Time sulfamethoxazole AdvReac Hives Verified 07/09/21 19:02 [From Bactrim] trimethoprim [From Bactrim] AdvReac Hives Verified 07/09/21 19:02 Social History Smoking Status: Former smoker ROS ROS ED Constitutional Constitutional ED: Reports chills; Denies fever(s) Eyes Eyes: Denies change in vision or discharge from eye(s) ENT ENT ED: Reports other Details: Congestion ; Denies discharge from eye(s), rhinorrhea or sore throat Cardiovascular Cardiovascular: Denies chest pain or palpitations Respiratory/Chest Respiratory/Chest: Reports cough and dyspnea Gastrointestinal Gastrointestinal: Denies abdominal pain, diarrhea, nausea or vomiting Genitourinary Genitourinary ED: Denies difficulty urinating or dysuria Musculoskeletal Musculoskeletal: Denies back pain or extremity pain Integumentary Denies Abrasions or rash Neurologic Neurologic: Denies headache(s) or weakness Psychiatric Psychiatric: Denies anxiety or depression Allergic/Immunologic Allergic/Immunologic ED: Denies lip swelling or urticaria EXAM Physical Exam Const Vital Signs: 11/22/21 18:54 11/22/21 19:32 11/22/21 19:42 Temperature 98.1 F Temperature Source Temporal Pulse Rate 124 H 103 H 106 H Respiratory Rate 20 H 16 18 Respiratory Effort Respiratory Depth Respiratory Pattern Blood Pressure 116/85 H 122/68 H Blood Pressure Mean 95 86 Pulse Ox 96 100 Oxygen Delivery Method Room Air Room Air 11/22/21 19:56 11/22/21 20:00 11/22/21 20:37 Temperature Temperature Source Pulse Rate 108 H 103 H Respiratory Rate 18 17 Respiratory Effort Non-Labored Respiratory Depth Normal Respiratory Pattern Normal Blood Pressure 121/64 H Blood Pressure Mean 83 Pulse Ox 98 Oxygen Delivery Method Room Air Room Air 11/22/21 20:48 11/22/21 21:25 Temperature Temperature Source Pulse Rate 115 H 102 H Respiratory Rate 23 H 17 Respiratory Effort Respiratory Depth Respiratory Pattern Blood Pressure 121/64 H 110/54 L Blood Pressure Mean 83 72 Pulse Ox 97 94 Oxygen Delivery Method Room Air Room Air Positive well nourished and well developed General Appearance ED: well developed HEENT Reports normocephalic and head/scalp atraumatic Eyes PERRL and EOMs intact bilaterally Neck supple Chest Wall inspection of chest normal and palpation of chest normal Resp normal respiratory effort Resp Narrative: End expiratory wheezes bilaterally. Cardio regular rhythm Rate: tachycardic GI GI Narrative: Abdomen gravid. No tenderness. Palpation: soft Extremity normal to inspection Neuro oriented x3 and no sensory deficits noted Sensorium / Orientation: alert Motor Exam: strength 5/5 throughout Psych mental status grossly normal Skin no rashes or lesions noted MDM MDM MDM Narrative Medical decision making narrative: Patient placed on ekg monitor tech. EKG, chest x-ray, COVID test ordered. Lab work obtained. Patient given Solu-Medrol and aerosols. Lab Data Attestation: I reviewed the patient's lab results. Labs: Laboratory Results - last 24 hr 11/22/21 11/22/21 19:38 19:38 WBC 18.3 H RBC 3.97 L Hgb 11.7 L Hct 35.5 L MCV 89.4 MCH 29.5 MCHC 33.0 RDW Std Deviation 41.0 RDW Coeff of Franco 12.6 Plt Count 280 MPV 9.7 Immature Gran % (Auto) 0.400 Neut % (Auto) 86.2 H Lymph % (Auto) 6.6 L [place] % (Auto) 5.3 Eos % (Auto) 1.4 Baso % (Auto) 0.1 Absolute Neuts (auto) 15.7 H Absolute Lymphs (auto) 1.21 Nucleated RBC % 0 Sodium 138 Potassium 3.5 Chloride 106 Carbon Dioxide 22.0 Anion Gap 10 BUN 5 L Creatinine 0.47 L Estim Creat Clear Calc 173.30 Est GFR (MDRD) Af Amer 200 Est GFR (MDRD) Non-Af 166 BUN/Creatinine Ratio 10.5 Glucose 87 Calcium 8.9 Radiography Chest X-Ray - ED: 1 View, Read by ED Physician, Normal, Heart, Lungs and Mediastinum Diagnostic Testing: Clinical Impression(s) from Imaging Studies Chest X-Ray 11/22/21 20:00 IMPRESSION: Normal x-ray examination of the chest. Electronically Signed: Aba Clark MD at 20:19 EDT , EKG Initial EKG: Attestation: I personally reviewed and interpreted this EKG as follows: Interpretation: Sinus Tachycardia (Sinus tach at 103 with no acute ischemia.) Treatment and Re-Evaluation Narrative: Repeat evaluation patient improved. Lung sounds are clear to auscultation. She still has some slight shortness of breath and is requesting an additional breathing treatment. Lab work reveals a white count of 18.1 with 86% neutrophils. Chemistry studies unremarkable. Chest x-ray per my interpretation reveals no focal infiltrate. Radiology interpretation is reviewed and agrees. EKG is sinus tach with no acute ischemia. Patient did become nauseated after receiving the IV steroids and was given a dose of Zofran. She completed 1 additional dose of albuterol nebulized treatment and feels significantly improved. Lung sounds are clear. Patient will be treated with prednisone and albuterol inhaler. She will be referred to pulmonology locally as she does have asthma and does not have a doctor in the area. Although she does have a leukocytosis I believe this likely more secondary to her than acute bacterial infection. Her chest x-ray is clear. She will continue supportive care. Discharge Plan Triage Chief Complaint: Shortness of Breath ED Provider: Mishel Cavanaugh Dx/Rx/DC Orders Clinical Impression: Viral URI, Acute bronchospasm Instructions: ED URI, Viral W/ Wheezing (Adult) Prescriptions: New prednisone 20 mg tablet 40 mg PO DAILY Qty: 8 0RF albuterol sulfate [Ventolin HFA] 90 mcg/actuation HFA aerosol inhaler 1 - 2 puff inhalation Q4H PRN PRN (Reason: Wheezing) Qty: 1 0RF No Action albuterol sulfate 1 INHALER inhaler 2 puff inhalation Q4H PRN PRN (Reason: Wheezing) Qty: 1 0RF nitrofurantoin macrocrystal 100 mg capsule 100 mg PO BID Qty: 10 0RF Rx Instructions: must administer with a meal/food PNV cmb#95-ferrous fumarate-FA [ Multivitamins] 28 mg iron- 800 mcg tablet 1 tab PO DAILY Qty: 30 0RF Primary Care Provider: Jose Us Referrals: Maile Us DO [Med Staff - Active Staff] - Keep Radha appointment Bronson Wu DO [Med Staff - Active Staff] - As Needed Care Physician,No Primary [Non-Staff] - Disposition Disposition: Home, Self Care
--- NOTE | 2021-11-22 19:28 | ED.RN ---
no old ekg
[2021-11-22] MEDS: Albuterol 2.5 MG/3 ML VIAL.NEB. INHALATION ×2 (19:32→20:36)
[2021-11-22] MEDS: Ipratropium/Albuterol Sulfate 3 ML AMPUL.NEB INHALATION (19:32)
[2021-11-22] MEDS: MethylPREDNISolone 125 MG/2 ML Vial IV (19:41)
[2021-11-22 19:57] LABS: Absolute Lymphocyte Count 1.21 X10^3/uL (0.83-4.51); Absolute Neutrophil Count 15.7 X10^3/uL (2.0-7.7); Basophil# 0.02 X10^3/uL; Basophil% 0.1 % (0-1); Eosinophil# 0.26 X10^3/uL; Eosinophils% 1.4 % (0-5); Hematocrit 35.5 % (37-47); Hemoglobin 11.7 g/dL (12.0-15.0); Lymphocyte # 1.21 X10^3/ul (0.83-4.51); Lymphocyte % 6.6 % (19-41); Mean Corpuscular Hgb 29.5 pg (27.0-32.0); Mean Corpuscular Volume 89.4 fL (81-99); Mean Platelet Vol. 9.7 fl (6.2-12.0); Monocyte# 0.97 X10^3/uL; Monocyte% 5.3 % (0-10); NRBC Flagged by Analyzer 0 % (0-5); Neutrophil # 15.74 X10^3/uL (2.7-7.7); Neutrophil % 86.2 % (47-70); Platelet Count 280 K/mm3 (150-450); RBC Distribution Width CV 12.6 % (11.6-14.6); Red Blood Count 3.97 M/mm3 (4.2-5.4); White Blood Count 18.3 K/mm3 (4.4-11.0)
--- NOTE | 2021-11-22 20:00 | RAD_ITS ---
STUDY: X-RAY CHEST REASON FOR EXAM: Female, 26 years old. sob (24wks preg - shield abd) TECHNIQUE: Single AP portable view of the chest. COMPARISON: FINDINGS: The lungs are clear and expanded. There is no demonstrated pleural abnormality. Normal size heart. Normal mediastinum and willie. Normal visualized pulmonary arteries. Normal visualized aortic arch and descending thoracic aorta. Normal visualized thoracic spine. Normal visualized ribs, clavicles, and shoulders. There is no demonstrated abnormality of the visualized soft tissue structures of the upper abdomen. RAD/Chest 1 View (Portable) IMPRESSION: Normal x-ray examination of the chest. Electronically Signed: Aba Clark MD at 20:19 EDT ,
[2021-11-22 20:17] LABS: Anion Gap 10 (5-15); BUN 5 mg/dL (7-18); BUN/Creat Ratio 10.5 RATIO (10-20); Calcium,Total 8.9 mg/dL (8.5-10.1); Chloride 106 mmol/L (98-107); Creatinine, Serum 0.47 mg/dL (0.55-1.02); EST Glomerular Filtration Rate 166 mL/min (>60); Est Glom Filt Rate - Afr Amer 200 mL/min (>60); Glucose 87 mg/dL (74-106); Potassium 3.5 mmol/L (3.5-5.1); Sodium Level 138 mmol/L (136-145)
[2021-11-22] MEDS: Ondansetron 4 MG/2 ML Vial IV (20:46)
== END 2021-11-22 21:43 | disposition home or self-care (01) ==
PROVIDERS: Emergency Provider Emergency Medicine; Visit Provider Emergency Medicine
DX: O99.512 Diseases of the respiratory system complicating pregnancy, second trimester (principal); G80.9 Cerebral palsy, unspecified; J06.9 Acute upper respiratory infection, unspecified; Z3A.24 24 weeks gestation of pregnancy; J45.909 Unspecified asthma, uncomplicated; O99.352 Diseases of the nervous system complicating pregnancy, second trimester; Z87.891 Personal history of nicotine dependence
CPT/HCPCS: 94640; 71045; 80048; 85025; 87426; 93005; 96374; 96375; 99284; A4216; J2405

== ENCOUNTER → 2021-12-05 | Outpatient (CLI) | payer MEDICAID, SELFPAY ==
[2021-12-05 16:04] LABS: Absolute Lymphocyte Count 2.57 X10^3/uL (0.83-4.51); Absolute Neutrophil Count 13.5 X10^3/uL (2.0-7.7); Basophil# 0.02 X10^3/uL; Basophil% 0.1 % (0-1); Eosinophil# 0.13 X10^3/uL; Eosinophils% 0.7 % (0-5); Hematocrit 32.4 % (37-47); Hemoglobin 10.8 g/dL (12.0-15.0); Lymphocyte # 2.57 X10^3/ul (0.83-4.51); Lymphocyte % 14.7 % (19-41); Mean Corp Hgb Conc 33.3 g/dL (32-36); Mean Corpuscular Hgb 29.5 pg (27.0-32.0); Mean Corpuscular Volume 88.5 fL (81-99); Monocyte# 1.15 X10^3/uL; Monocyte% 6.6 % (0-10); NRBC Flagged by Analyzer 0 % (0-5); Neutrophil # 13.49 X10^3/uL (2.7-7.7); Neutrophil % 77.2 % (47-70); Platelet Count 307 K/mm3 (150-450); RBC Distribution Width CV 12.6 % (11.6-14.6); RBC Distribution Width SD 40.7 fl (35.1-43.9); Red Blood Count 3.66 M/mm3 (4.2-5.4); White Blood Count 17.5 K/mm3 (4.4-11.0)
[2021-12-05 16:32] LABS: Glucose Challenge Gest 1H 50g 86 mg/dL (70-140)
== END | disposition home or self-care (01) ==
LOC: LAB 13:45
PROVIDERS: Visit Provider Obstetrics & Gynecology
DX: Z34.83 Encounter for supervision of other normal pregnancy, third trimester (principal)
CPT/HCPCS: 36415; 82950; 85025

== ENCOUNTER 2021-12-18 16:00 | Outpatient (CLI) | payer MEDICAID, SELFPAY ==
[2021-12-18 16:16] VITALS: BMI 39.7
[2021-12-18 16:26] VITALS: BP 130/69; PULSE 74
[2021-12-18 16:56] LABS: Color, Urine Yellow (Yellow); Glucose, Dipstick Normal (Normal); Ketone-Dipstick Negative (Negative); Leukocyte Esterase-Dipstick 100 /ul (Negative); Nitrite-Dipstick Negative (Negative); Occult Blood-Urine 25 /ul (Negative); Protein-Dipstick 15 mg/dl (Negative); Specific Gravity, Urine 1.025 (1.002-1.030); Urine Bilirubin Dipstick Negative (Negative); Urine Clarity Clear (Clear); Urine Urobilinogen Normal (Normal)
--- NOTE | 2021-12-18 17:40 | OB.TRI.NOTE ---
HPI - General General Date of Admission: 12/18/21 HPI Narrative TED DUENAS, is a 26 F who presents with back pain [facility] Medical History (Updated 12/18/21 @ 17:[address] Kevin Us MD) Anxiety Asthma Cerebral palsy Depression Physical exam, pre-employment Home Medications albuterol sulfate 90 mcg/actuation aerosol inhaler 2 puff inhalation Q4H PRN PRN Wheezing ##1 11/24/18 [Rx Last Taken Unknown] albuterol sulfate 90 mcg/actuation aerosol inhaler (Ventolin HFA) 1 - 2 puff inhalation Q4H PRN PRN Wheezing ##1 11/22/21 [Rx Last Taken Unknown] Allergy/AdvReac Type Severity Reaction Status Date / Time sulfamethoxazole AdvReac Hives Verified 12/18/21 16:16 [From Bactrim] trimethoprim [From Bactrim] AdvReac Hives Verified 12/18/21 16:16 Social History Smoking Status: Former smoker Physical Exam Const alert, oriented x3, no apparent distress, average body habitus, no limitations and healthy appearing HEENT moist oral mucous membranes Eyes PERRL Neck full ROM Resp normal respiratory effort, no retractions and no use of accessory muscles GI GI Narrative: Soft, nontender, gravid Narrative: Cervical exam: 1 thick and high Back/Spine no CVA tenderness Extremity normal to inspection, full ROM and no clubbing, cyanosis or edema Neuro moves all extremities and no focal motor deficits Psych mental status grossly normal, affect normal, speech normal and activity/motor behavior normal NST FHR Rate Baby A Baseline: 140 Variability:: Moderate Accelerations:: 15 x 15 Decelerations:: None NST Reactive:: Yes Uterine Activity:: Quiet Assessment & Plan (1) : PLAN: Patient seen and examined. Back pain. No CVA tenderness. Urine with questionable UTI will treat with 1 g of Rocephin IM. Urine culture to be sent. Patient with history of lumbar injury. Discussed Tylenol and heating pad. Okay to discharge home
[2021-12-18] MEDS: Acetaminophen 500 MG Tablet 1000 MG PO (18:00)
[2021-12-18] MEDS: Ceftriaxone 1 GM Vial IM (18:47)
[2021-12-18] MEDS: DiphenhydrAMINE 25 MG Capsule 50 MG PO (19:17)
--- NOTE | 2021-12-18 19:23 | NURSING ---
Pt was d/c home at 1850. Pt arrived back to approx 10 minutes later complaining of generalized itching and stinging to body. Pt was put back in room 12. This RN examined pts body and noted hives covering pts back and legs. Dr. Us called. Telephone order given for Benadryl 50mg PO and to watch pt for further reaction. Medication given see MAR. Pts hives appear to be dissipating. Pt denies any complaints of difficulty breathing. Report was then given to Kimberly QUIGLEY.
[2021-12-18 19:25] VITALS: BP 116/56; PULSE 91; TEMP 36.5; O2SAT 95
== END 2021-12-18 19:40 | disposition home or self-care (01) ==
LOC: WPOUT 16:02 → WP 16:02
PROVIDERS: Visit Provider Obstetrics & Gynecology
DX: O26.899 Other specified pregnancy related conditions, unspecified trimester (principal); M54.9 Dorsalgia, unspecified; Z87.891 Personal history of nicotine dependence; Z79.2 Long term (current) use of antibiotics
CPT/HCPCS: 59050; 81002; 87077; 87086; 87088; 87186; 96372; 99218; G0378

== ENCOUNTER → 2022-01-07 | Outpatient (CLI) | payer MEDICAID, SELFPAY | END | disposition home or self-care (01) | LOC: LABSPEC 10:53 | PROVIDERS: Visit Provider Student in an Organized Health Care Education/Training Program | DX: Z34.83 Encounter for supervision of other normal pregnancy, third trimester (principal); Z87.440 Personal history of urinary (tract) infections | CPT/HCPCS: 87086; 87088 ==

== ENCOUNTER 2022-01-12 12:14 | Emergency (ER) | payer MEDICAID, SELFPAY ==
[2022-01-12 12:15] VITALS: BP 143/76; PULSE 95; RESP 18; TEMP 36.4; O2SAT 97; BMI 39.6
--- NOTE | 2022-01-12 12:46 | EDS_ITS ---
HPI History of Present Illness Chief Complaint: Head Injury Narrative Narrative: Patient presents to the ED today after hitting her head this afternoon. She states she was walking out of [place] and tripped over a curb and landed backwards hitting her head on the concrete. She denies loss of consciousness. Patient is 8 months and denies any injury to her abdomen or fetus. She admits to feeling very anxious, headache, nausea, and light sensitivity. Her last tetanus was 2015. She denies vomiting, noise sensitivity, dizziness, confusion, and use of blood thinners. [facility] Medical History Anxiety Asthma Cerebral palsy Depression Physical exam, pre-employment Home Medications albuterol sulfate 90 mcg/actuation aerosol inhaler 2 puff inhalation Q4H PRN PRN Wheezing ##1 11/24/18 [Rx Last Taken Unknown] albuterol sulfate 90 mcg/actuation aerosol inhaler (Ventolin HFA) 1 - 2 puff inhalation Q4H PRN PRN Wheezing ##1 11/22/21 [Rx Last Taken Unknown] Allergy/AdvReac Type Severity Reaction Status Date / Time ceftriaxone [From Rocephin] Allergy Hives Verified 01/12/22 12:15 sulfamethoxazole AdvReac Hives Verified 01/12/22 12:15 [From Bactrim] trimethoprim [From Bactrim] AdvReac Hives Verified 01/12/22 12:15 Social History Smoking Status: Former smoker ROS ROS ED Constitutional Constitutional ED: Denies chills or fever(s) Eyes Eyes: Reports photophobia; Denies blurry vision or loss of vision ENT ENT ED: Denies rhinorrhea or sore throat Cardiovascular Cardiovascular: Denies chest pain or palpitations Respiratory/Chest Respiratory/Chest: Denies cough, dyspnea or dyspnea on exertion Gastrointestinal Gastrointestinal: Reports nausea; Denies abdominal pain or vomiting Musculoskeletal Musculoskeletal: Denies back pain, myalgias or neck pain Integumentary Reports laceration; Denies rash or unusual bruising Neurologic Neurologic: Reports headache(s); Denies abnormal movements, abnormal speech, behavior changes, confusion, dizziness, focal weakness, memory loss, numbness, paresthesias, syncope or weakness Psychiatric Psychiatric: Reports anxiety; Denies depression Hematologic/Lymphatic Hematologic/Lymphatic: Denies easy bleeding or easy bruising EXAM Physical Exam Const Vital Signs: 01/12/22 12:15 01/12/22 12:21 Temperature 97.5 F L Temperature Source Temporal Pulse Rate 95 Respiratory Rate 18 Respiratory Effort Normal Non-Labored Blood Pressure 143/76 H Blood Pressure Mean 98 Pulse Ox 97 Oxygen Delivery Method Room Air Positive well nourished and well developed General Appearance ED: well developed HEENT HEENT Narrative: Patient has a 1 inch superficial linear laceration on the back of her scalp with mild edema and mild bleeding. trauma and tenderness Eyes PERRL and EOMs intact bilaterally Visual Acuity: acuity normal Alignment: alignment normal Neck full ROM and supple General: Negative for tenderness Resp normal respiratory effort and clear to auscultation bilaterally Effort and Inspection: Negative for pain with movement Auscultation: Negative for rales, rhonchi, wheezes or diminished lung sounds Cardio regular rhythm and no murmurs Rate: regular rate GI normal to inspection, nondistended, normoactive bowel sounds, non-tender and no masses Palpation: soft Back/Spine normal to inspection and no thoracic nor lumbar tenderness Extremity normal to inspection and full ROM General Extremety ED: Negative for edema or tenderness General Extremity: Negative for edema Neuro oriented x3, CN's II-XII intact bilaterally, moves all extremities, no focal motor deficits, no sensory deficits noted and gait normal Sensorium / Orientation: alert Motor Exam: strength 5/5 throughout Psych mental status grossly normal and thought process normal Psych Narrative: Patient states she has a history of anxiety and is feeling anxious after hitting her head. She states she is unsure if the nausea she is experiencing is from her anxiety or if it is because her head is hurting. Mood & Affect: anxious Skin no petechiae Skin Narrative: 1 inch superficial linear laceration on the back of the scalp. Very mild bleeding, mild edema. General Skin Exam: Negative for ecchymosis Lesions: lesion noted Rashes: no rashes MDM MDM MDM Narrative Medical decision making narrative: Due to the laceration being superficial and small in size, kourtney are not absolutely necessary. I told patient I would be putting 2 kourtney in, but she declined them. I have given her 8mg Zofran for her nausea and 650 mg Tylenol for her head pain. heart tones have been obtained to ensure fetus is not under stress. I do not feel a CT of the head is necessary, especially with her being . Patient's OB, Ermelinda Us has been paged and would like to see her on the labor and delivery floor. The nurses have taken patient down to the labor and delivery floor. Discharge Plan Triage Chief Complaint: Head Injury ED Midlevel Provider: Cee Huynh ED Provider: Oneil Farah Dx/Rx/DC Orders Instructions: ED Head Injury (Adult) Prescriptions: No Action albuterol sulfate 1 INHALER inhaler 2 puff inhalation Q4H PRN PRN (Reason: Wheezing) Qty: 1 0RF albuterol sulfate [Ventolin HFA] 90 mcg/actuation HFA aerosol inhaler 1 - 2 puff inhalation Q4H PRN PRN (Reason: Wheezing) Qty: 1 0RF Primary Care Provider: Daniele Costello,Out of Referrals: Maile Us, [Med Staff - Active Staff] - 3-5 Days Town Doctor,Out of [Primary Care Provider] - Activity Restrictions/Additional Instructions: Please seek medical attention if you become dizzy, feel weak, have visual or hearing changes, or any new or worsening symptoms. Disposition Disposition: Home, Self Care Discharge Date/Time: 01/12/22 13:30
[2022-01-12] MEDS: Acetaminophen 325 MG Tablet 650 MG PO (12:58)
[2022-01-12] MEDS: Ondansetron 8 MG Tablet PO (12:58)
== END 2022-01-12 13:30 | disposition home or self-care (01) ==
PROVIDERS: Emergency Provider Emergency Medicine; Visit Provider Emergency Medicine
DX: O9A.213 Injury, poisoning and certain other consequences of external causes complicating pregnancy, third trimester (principal); S01.01XA Laceration without foreign body of scalp, initial encounter; W19.XXXA Unspecified fall, initial encounter; Z87.891 Personal history of nicotine dependence; Z3A.00 Weeks of gestation of pregnancy not specified
CPT/HCPCS: 99283

== ENCOUNTER 2022-01-23 12:55 | Outpatient (CLI) | payer MEDICAID, SELFPAY ==
[2022-01-23 13:03] VITALS: BMI 39.7
[2022-01-23 13:06] VITALS: BP 130/72; PULSE 96; TEMP 37.3; O2SAT 97
[2022-01-23 13:11] VITALS: PULSE 86; O2SAT 98
== END 2022-01-23 14:42 | disposition home or self-care (01) ==
LOC: WPOUT 13:02 → WP 13:02
PROVIDERS: Referring Provider Student in an Organized Health Care Education/Training Program; Visit Provider Student in an Organized Health Care Education/Training Program
DX: O62.9 Abnormality of forces of labor, unspecified (principal); Z3A.37 37 weeks gestation of pregnancy
CPT/HCPCS: 59025; 59050; 99218; G0378

== ENCOUNTER 2022-01-29 12:50 | Outpatient (CLI) | payer MEDICAID, SELFPAY ==
[2022-01-29 13:09] VITALS: TEMP 36.6
[2022-01-29 13:11] VITALS: O2SAT 97
[2022-01-29 13:12] VITALS: BP 117/62; PULSE 90; O2SAT 98
[2022-01-29 13:26] VITALS: BMI 40.2
[2022-01-29 14:01] LABS: ROM Internal Control Test YES-OK TO RESULT pt. (Internal QC); ROM Patient Test Negative (Negative)
--- NOTE | 2022-01-29 16:13 | OB.TRI.NOTE ---
HPI - General General Date of Admission: 01/29/22 HPI Narrative TED DUENAS, is a 26 F who presents with contractions PFSH PFSH Medical History Anxiety Asthma Cerebral palsy Depression Physical exam, pre-employment Home Medications albuterol sulfate 90 mcg/actuation aerosol inhaler (Ventolin HFA) 1 - 2 puff inhalation Q4H PRN PRN Wheezing ##1 11/22/21 [Rx Last Taken 01/27/22 10:00] Allergy/AdvReac Type Severity Reaction Status Date / Time ceftriaxone [From Rocephin] Allergy Hives Verified 01/23/22 13:08 sulfamethoxazole AdvReac Hives Verified 01/23/22 13:08 [From Bactrim] trimethoprim [From Bactrim] AdvReac Hives Verified 01/23/22 13:08 Social History Smoking Status: Former smoker NST FHR Rate Baby A Baseline: 150 Variability:: Moderate Accelerations:: 15 x 15 NST Reactive:: Yes Uterine Activity:: Few contractions Assessment & Plan (1) : PLAN: Patient arrived with contractions. Cervical exam based on nursing no signs of labor. Okay to discharge home and follow-up at scheduled appointments
== END 2022-01-29 14:05 | disposition home or self-care (01) ==
LOC: WPOUT 13:02 → WP 13:03
PROVIDERS: Visit Provider Obstetrics & Gynecology
DX: O47.9 False labor, unspecified (principal); Z87.891 Personal history of nicotine dependence
CPT/HCPCS: 59025; 59050; 84112; 99218; G0378

== ENCOUNTER 2022-02-02 14:40 | Outpatient (CLI) | payer MEDICAID, SELFPAY | END 2022-02-02 23:59 | disposition home or self-care (01) | LOC: LABSPEC 14:40 | PROVIDERS: Visit Provider Student in an Organized Health Care Education/Training Program | DX: Z34.83 Encounter for supervision of other normal pregnancy, third trimester (principal) | CPT/HCPCS: 87081 ==

== ENCOUNTER 2022-02-09 01:20 | Outpatient (CLI) | payer MEDICAID, SELFPAY ==
[2022-02-09 01:38] VITALS: BP 122/74; PULSE 83; TEMP 37.1
[2022-02-09 01:39] VITALS: PULSE 89; O2SAT 98
[2022-02-09 01:50] VITALS: BMI 40.4
--- NOTE | 2022-02-13 08:07 | PCM.PN.BLA ---
Progress Note 18-year-old G2, P1 at 37/5 weeks presenting with rare contractions. Cervical exam 4 cm, unchanged. Patient had been 3 cm a week to 2 weeks prior. Patient per RN sleeping in room after admission status reassuring. FHR 145/mod marybel/+accel/no decel, toco quiet. Patient not in labor. Discharge home with labor precautions. Patient had appointment later that day in office, to keep appointment.
== END 2022-02-09 03:57 | disposition home or self-care (01) ==
LOC: WPOUT 01:29 → WP 01:29
PROVIDERS: Visit Provider Student in an Organized Health Care Education/Training Program
DX: O47.1 False labor at or after 37 completed weeks of gestation (principal); Z3A.37 37 weeks gestation of pregnancy
CPT/HCPCS: 59025; 59050; 99218; G0378

== ENCOUNTER → 2022-02-18 | Outpatient (CLI) | payer MEDICAID, SELFPAY ==
[2022-02-21 07:07] LABS: Chlamydia By Nucleic Acid AMP Negative (Negative)
[2022-02-21 14:29] LABS: Gonococcus By Nucleic Acid AMP Negative (Negative)
== END | disposition home or self-care (01) ==
LOC: LABSPEC 13:54
PROVIDERS: Visit Provider Student in an Organized Health Care Education/Training Program
DX: Z11.3 Encounter for screening for infections with a predominantly sexual mode of transmission (principal)
CPT/HCPCS: 87491; 87591

== ENCOUNTER 2022-02-25 09:20 | Inpatient (IN) | payer MEDICAID, SELFPAY ==
--- NOTE | 2022-01-24 08:14 | PCM.PN.OB ---
Subjective Subjective Reports movement denies contractions leaking of fluid vaginal bleeding. NST FHR Rate Baby A Baseline: 145 Variability:: Moderate Accelerations:: 15 x 15 Decelerations:: None NST Reactive:: Yes Assessment & Plan (1) : PLAN: at 34/5 weeks presenting for extended monitoring. Patient had BPP in office that was 6 out of 8, no breathing. Patient had NST in office which was reactive, however baby was difficult to trace, unable to determine if there was a variable D cells versus movement and coming off the monitor (this it appeared to be the case as baby was moving a lot and was difficult to trace). However decision for extended monitoring was made to ensure this. Patient needed to leave after 96 minutes. heart rate was reassuring and reactive. Discharged home with precautions. Follow-up in office 1 week.
[2022-02-25] VITALS (20 sets, daily range): BP systolic 96–130; BP diastolic 37–74; PULSE 66–92; RESP 15–18; TEMP 35.9–36.2; O2SAT 95–100; BMI 41.0
[2022-02-25 10:11] LABS: Absolute Neutrophil Count 8.2 X10^3/uL (2.0-7.7); Basophil# 0.02 X10^3/uL; Basophil% 0.2 % (0-1); Eosinophil# 0.16 X10^3/uL; Eosinophils% 1.3 % (0-5); Hematocrit 33.6 % (37-47); Lymphocyte % 19.3 % (19-41); Mean Corp Hgb Conc 32.7 g/dL (32-36); Mean Corpuscular Hgb 27.8 pg (27.0-32.0); Mean Corpuscular Volume 84.8 fL (81-99); Mean Platelet Vol. 9.4 fl (6.2-12.0); Monocyte# 1.15 X10^3/uL; Monocyte% 9.6 % (0-10); NRBC Flagged by Analyzer 0 % (0-5); Neutrophil # 8.23 X10^3/uL (2.7-7.7); Neutrophil % 69.1 % (47-70); Platelet Count 258 K/mm3 (150-450); RBC Distribution Width CV 13.1 % (11.6-14.6); Red Blood Count 3.96 M/mm3 (4.2-5.4); White Blood Count 11.9 K/mm3 (4.4-11.0)
[2022-02-25] MEDS: Acetaminophen 500 MG Tablet 1000 MG PO ×3 (10:15→23:37)
[2022-02-25] MEDS: Lactated Ringers 1,000 ML 999 ML IV (10:16)
[2022-02-25] MEDS: Lactated Ringers 1,000 ML 150 ML IV (10:50)
--- NOTE | 2022-02-25 11:54 | HP.PCM.OB_ITS ---
History and Physical Date of Admission: 02/25/22 HPI: 26-year-old at 40/0 weeks, NIRMAL 02/25/2022 by early dating, admitted for repeat section. Denies leaking fluid, vaginal bleeding, contractions. Reports movement. Denies headache or vision changes, chest pain or shortness of breath, nausea or vomiting, fevers or chills, diarrhea or constipation. complicated by: Class III obesity [employer] history G1: 39-week G2: Current Medical history: 1. Depression on Zoloft 2. Obesity Surgical history: 1. Hip arthroscopy 2. Knee replacement 3. section Allergies: 1. Rocephin 2. Bactrim Social history: Former tobacco use, denies alcohol or drug use Family history: Denies history of blood clots or bleeding disorders Review of system: Negative otherwise stated above Physical exam: Vitals pending General: No acute distress HEENT: Normal cephalic/atraumatic, PERRLA Cardiorespiratory: No increased effort Abdomen: Soft, nontender, gravid Extremities: No edema neurologic: Cranial nerves II through XII grossly intact, no focal deficits Musculoskeletal: Strength 5 out of 5 throughout all extremities NST reactive Assessment/plan: 26-year-old at 40/0 weeks, NIRMAL 02/25/2022 by early dating, admitted for repeat section. complicated by: Class III obesity ?Admit for repeat section. Gentamicin and clindamycin preoperatively. ?Depression on Zoloft. Continue medication.
[2022-02-25] MEDS: Sodium Citrate/Citric Acid 30 ML UDC PO (12:12)
[2022-02-25] MEDS: Clindamycin 900 MG/50 ML BAG 75 MG IV (12:27)
--- NOTE | 2022-02-25 13:19 | EX.PCM.OBRPT ---
Details Operative Information Date of Procedure: 02/25/22 Pre-Operative Diagnosis: Robles intrauterine Post-Operative Diagnosis: Robles intrauterine Indications Narrative: 26-year-old at 40/0 weeks presenting for repeat section. All risk, benefits, alternatives discussed with patient. Risk include but are not limited to: Risk of bleeding twin transfusion, infection, injury to surrounding tissue including bowel/bladder potentially requiring prolonged [place] catheter use, VTE, ICU admission. Patient aware and consented. Procedure Type: low transverse Type of Anesthesia: Spinal Estimated Blood Loss: 700 cc Fluids Replaced: 950 cc Findings Description of Procedure: Procedure: Patient taken to the operating room and spinal placed. Patient placed in the supine position with a left lateral tilt. Pfannenstiel skin incision made with scalpel and carried down through subcutaneous tissue. Fascia nicked on either side of the midline and extended using Nickerson scissors. Teodoro clamps placed the superior fascial edge which was tented up underlying rectus muscles dissected bluntly and sharply at midline using Nickerson scissors. Teodoro clamps placed at the inferior fascial edge which was tented up and underlying rectus muscles were dissected off bluntly and sharply in a similar fashion. Rectus muscles dissected superiorly using hemostats. Peritoneum entered bluntly. Bladder blade placed. Vesicouterine peritoneum identified and bladder flap created using Metzenbaum scissors. Low transverse uterine incision made with scalpel and extended bluntly. Amniotomy me clear fluid. Hand placed into the uterine cavity and had elevated to the level of the hysterotomy. Bladder blade removed. Nuchal cord x2, loose, reduced. Head delivered followed by body. Cord clamped and cut. Baby handed to nursing. Manual extraction of the placenta. Uterus exteriorized and cleared of all clots. Hysterotomy closed with a running locking stitch followed by a second vertical imbricating stitch. Hysterotomy hemostatic with 1 [id number] stitch on the right side of the closure. Uterus replaced. Hemostasis confirmed. Peritoneum closed with a running stitch. Fascia closed with running stitch. Subcutaneous tissue reapproximated with suture. Skin closed with running subcuticular stitch. At the end the procedure all needle, lap, sponge counts were correct. Urine output: 25 cc clear urine A Gender: Female (1 minute): 8 (5 minute): 9 Complications Complications: None
[2022-02-25] MEDS: Ketorolac 30 MG/ML Syringe IV ×2 (14:01→19:23)
[2022-02-25] MEDS: Oxytocin 15 Units/NS 250ml 15 UNITS/250 ML IV.SOLN 83 UNITS IV (14:03)
[2022-02-25] MEDS: Ondansetron 4 MG/2 ML Vial IV (19:23)
--- NOTE | 2022-02-25 20:11 | NURSING ---
Pt ambulated to chair. Tolerated well.
--- NOTE | 2022-02-25 20:25 | NURSING ---
Patient had emesis x1. Sheets changed and patient ambulated to chair with assistance. Reports Zofran effective. Denies further needs.
[2022-02-25] MEDS: Lactated Ringers 1,000 ML 100 ML IV (22:09)
[2022-02-25] MEDS: DiphenhydrAMINE 25 MG Capsule PO (22:37)
[2022-02-26] VITALS (9 sets, daily range): BP systolic 103–131; BP diastolic 46–61; PULSE 60–79; RESP 16–18; TEMP 36.2–36.3; O2SAT 96–100
--- NOTE | 2022-02-26 00:18 | NURSING ---
RN notes stasis of urine near insertion site of chong catheter. RN attempted to draw urine out with syringe but unable to do so. RN notes decreased ouput and believes it was due to kinked or clogged tubing. RN unable to clear tubing. Decision made to discontinue catheter. Will continue to monitor voids.
[2022-02-26 04:59] LABS: Hematocrit 30.8 % (37-47); Mean Corp Hgb Conc 32.5 g/dL (32-36); Mean Corpuscular Hgb 27.7 pg (27.0-32.0); Mean Corpuscular Volume 85.3 fL (81-99); Mean Platelet Vol. 9.2 fl (6.2-12.0); Platelet Count 226 K/mm3 (150-450); RBC Distribution Width SD 40.1 fl (35.1-43.9); Red Blood Count 3.61 M/mm3 (4.2-5.4); White Blood Count 13.6 K/mm3 (4.4-11.0)
[2022-02-26] MEDS: Lactated Ringers 1,000 ML 999 ML IV (05:30)
--- NOTE | 2022-02-26 05:53 | NURSING ---
Pt voided 120 ml after order for straight catheter given. Straight cath order not completed. 1000ml bolus given.
[2022-02-26] MEDS: Acetaminophen 500 MG Tablet 1000 MG PO ×3 (06:22→18:19)
--- NOTE | 2022-02-26 07:42 | PN.OBGYN_ITS ---
Subjective Subjective Postop day 1. Pain controlled. Breast-feeding. Lochia minimal. Objective Data Objective Data Vital Signs: Vital Signs Temp Pulse Resp BP Pulse Ox O2 Del Method 97.1 F L 75 18 131/56 H 98 Room Air 02/26/22 03:44 02/26/22 06:23 02/26/22 06:23 02/26/22 03:44 02/26/22 06:23 02/26/22 06:23 Oxygen Delivery Method Room Air Weight: 118.841 kg Body Mass Index (BMI) 41.0 Intake & Output: Intake and Output for Last 24 Hours 02/24/22 02/25/22 02/26/22 23:59 23:59 23:59 Intake Total 2884.375 / 2884.375 2713.33 / 2713.33 Output Total 800 / 800 320 / 320 Balance 2084.375 / 2084.375 2393.33 / 2393.33 Lab / Micro Data Attestation: I reviewed the patient's lab results. Result Diagrams: 02/26/22 04:50 Labs: Laboratory Results - last 24 hr 02/25/22 09:55: WBC 11.9 H, RBC 3.96 L, Hgb 11.0 L, Hct 33.6 L, MCV 84.8, MCH 27.8, MCHC 32.7, RDW Std Deviation 40.0, RDW Coeff of Franco 13.1, Plt Count 258, MPV 9.4, Immature Gran % (Auto) 0.500, Neut % (Auto) 69.1, Lymph % (Auto) 19.3, [place] % (Auto) 9.6, Eos % (Auto) 1.3, Baso % (Auto) 0.2, Absolute Neuts (auto) 8.2 H, Absolute Lymphs (auto) 2.30, Nucleated RBC % 0 02/25/22 09:55: Blood Type A POSITIVE, Antibody Screen NEGATIVE 02/26/22 04:50: WBC 13.6 H, RBC 3.61 L, Hgb 10.0 L, Hct 30.8 L, MCV 85.3, MCH 27.7, MCHC 32.5, RDW Std Deviation 40.1, RDW Coeff of Franco 13.0, Plt Count 226, MPV 9.2 Physical Exam Const alert, oriented x3 and no apparent distress HEENT normocephalic Head and Scalp: atraumatic Neck full ROM Resp normal respiratory effort Cardio regular rate GI normal to inspection, nondistended, normoactive bowel sounds GI Narrative: Uterus 2 cm below umbilicus, dressing clean and dry Back/Spine normal ROM Extremity normal to inspection Extremity Narrative: Minimal pedal edema Neuro no focal motor deficits and no sensory deficits noted Psych mental status grossly normal and affect normal Assessment & Plan (1) Delivery by section: PLAN: Postop day 1 status post repeat section. Pain controlled. Breast-feeding. Plans for Nexplanon, will be placed today. Did not need to be straight cathed overnight, was able to void. Is receiving LR bolus at this time. We will continue to monitor urine output closely. (2) Post-operative pain:
[2022-02-26] MEDS: Ketorolac 30 MG/ML Syringe IV (08:50)
[2022-02-26] MEDS: 0.9% Saline Lock 10 ML Syringe IV (08:52)
[2022-02-26] MEDS: Senna/Docusate Sodium 1 Tablet PO (10:14)
[2022-02-26] MEDS: Enoxaparin 40 MG/0.4 ML Syringe SC (10:14)
--- NOTE | 2022-02-26 14:56 | PCM.OP.PRO ---
Procedure Report Date of Procedure: 02/26/22 Nexplanon Placement: Nexplanon risks and benefits discussed. Patient consented to procedure. Placement in left arm. Area cleaned with alcohol swab. 3 cc 1% lidocaine injected 8 cm from medial epicondyle. Area cleaned with chloroprep swab. Nexplanon placed. Confirmed placement with palpation of arm and absence of Nexplanon in device applicator. Gauze placed, and arm bandaged.
[2022-02-26] MEDS: Etonogestrel 68 MG IMPLANT SC (15:19)
[2022-02-26] MEDS: Ibuprofen 600 MG Tablet PO ×2 (15:20→21:33)
[2022-02-26] MEDS: oxyCODONE 5 MG Tablet PO (22:38)
[2022-02-27] MEDS: Acetaminophen 500 MG Tablet 1000 MG PO ×2 (00:26→06:29)
[2022-02-27 01:42] VITALS: BP 106/53; PULSE 91; RESP 17; TEMP 36.6
[2022-02-27] MEDS: Ibuprofen 600 MG Tablet PO ×2 (03:41→09:45)
[2022-02-27 08:30] VITALS: BP 104/43; PULSE 68; RESP 16; TEMP 36.2
--- NOTE | 2022-02-27 08:40 | DS.PCM_ITS ---
Discharge Summary Date of Admission: 02/25/22 Date of Discharge: 02/27/22 Summary: Patient arrived on 02/25/2022 for scheduled repeat section. Repeat section on 02/25/2022 pursued. Routine postoperative recovery. Nexplanon placed on 02/26/2022. Discharge home on 02/27/2022 Meaningful Use Info Meaningful Use Diagnoses (Choose all that apply): None applicable Discharge Plan Admission Admit Date/Time: 02/25/22 09:20 Primary Reason for Your Visit: repeat section Attending Provider: Maile Us Instructions Additional Instructions / Restrictions: Regular diet. Okay to shower. No tub baths for 2 weeks. No lifting over 25 pounds for 2 to 3 weeks. No intercourse for 4 to 6 weeks. Call if fevers, chills, chest pain, shortness of breath. Follow-up 2 weeks postoperatively Discharge Orders/Prescriptions Prescriptions: New oxycodone 5 mg tablet 5 mg PO Q6H PRN (Reason: pain (scale score 7-10)) 5 Days Qty: 24 0RF Continued albuterol sulfate [Ventolin HFA] 90 mcg/actuation HFA aerosol inhaler 1 - 2 puff inhalation Q4H PRN PRN (Reason: Wheezing) Qty: 1 0RF Referrals / Follow Up: [facility] Doctor,Out of [Non-Staff] - Disposition Disposition (needs filled in before D/C Order can be placed): Home, Self Care
--- NOTE | 2022-02-27 08:41 | PCM.PN.OB ---
Subjective Subjective No overnight complaints. Pain well controlled. Objective Data Objective Data Vital Signs: Vital Signs Temp Pulse Resp BP Pulse Ox O2 Del Method 97.9 F 91 17 106/53 L 98 Room Air 02/27/22 01:42 02/27/22 01:42 02/27/22 01:42 02/27/22 01:42 02/26/22 14:04 02/26/22 14:04 Oxygen Delivery Method Room Air Weight: 262 lb Body Mass Index (BMI) 41.0 Intake & Output: Intake and Output for Last 24 Hours 02/25/22 02/26/22 02/27/22 23:59 23:59 23:59 Intake Total 2884.375 / 2884.375 2713.33 / 2713.33 Output Total 800 / 800 1120 / 1120 Balance 2084.375 / 2084.375 1593.33 / 1593.33 Lab / Micro Data Result Diagrams: 02/26/22 04:50 Physical Exam Const alert, oriented x3, no apparent distress, average body habitus, healthy appearing and well nourished HEENT normocephalic and moist oral mucous membranes Eyes PERRL Neck full ROM Resp normal respiratory effort, no retractions and no use of accessory muscles GI GI Narrative: Soft, nontender, bandage clean dry and intact Extremity normal to inspection, full ROM and no clubbing, cyanosis or edema Neuro moves all extremities and no focal motor deficits Psych mental status grossly normal, affect normal, speech normal and activity/motor behavior normal Assessment & Plan (1) Delivery by section: PLAN: Postop day 2 status post repeat section. Breast-feeding. Pain well controlled. Okay to discharge home today
[2022-02-27] MEDS: Enoxaparin 40 MG/0.4 ML Syringe SC (09:46)
[2022-02-27] MEDS: Senna/Docusate Sodium 1 Tablet PO (09:46)
--- NOTE | 2022-02-28 09:59 | NURSING ---
The pt called in and asked if she was to be put on an antibiotic at discharge this nurse opened her chart and did not find an order for one, this was relayed to the pt. 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
== END 2022-02-27 11:15 | disposition home or self-care (01) | DRG 540 ==
PROVIDERS: Admitting Provider Student in an Organized Health Care Education/Training Program; Visit Provider Student in an Organized Health Care Education/Training Program
PROC: 10D00Z1 Extraction of Products of Conception, Low, Open Approach (ICD-10-PCS; CPT 59514; principal; 2022-02-25 11:45)
DX: O34.211 Maternal care for low transverse scar from previous cesarean delivery (principal); O99.214 Obesity complicating childbirth; F32.A Depression, unspecified; O69.81X0 Labor and delivery complicated by cord around neck, without compression, not applicable or unspecified; Z3A.40 40 weeks gestation of pregnancy; O99.344 Other mental disorders complicating childbirth; Z37.0 Single live birth; Z87.59 Personal history of other complications of pregnancy, childbirth and the puerperium; Z87.891 Personal history of nicotine dependence; Z30.017 Encounter for initial prescription of implantable subdermal contraceptive
CPT/HCPCS: 59025; 59050; 85025; 85027; 86850; 86900; 86901; 99218; 99406; J7120; A4216; G0378; J2405

== ENCOUNTER 2022-03-08 21:43 | Emergency (ER) | payer MEDICAID, SELFPAY ==
[2022-03-08 21:45] VITALS: BP 137/83; PULSE 72; RESP 16; TEMP 36.9; O2SAT 98; BMI 38.9
--- NOTE | 2022-03-08 23:45 | EX.ED.DYSGE1 ---
HPI History of Present Illness Chief Complaint: Fatigue Informant: patient Onset/Context/Timing Onset: Weeks (1) Context: Gradual Onset Timing: Continuous Quality: fatigue Location: all over Current Severity: Severe Maximum Severity: Severe Worsened by: nothing Relieved by: nothing Associated Symptoms Associated Symptoms: cold tingly feet off and on Narrative Narrative: Patient had a delivery about 1.5 weeks ago, she was anemic and placed on iron after her iron levels were low, she has been taking that, and just feeling very fatigued so presents for evaluation on holiday weekend. She denies any dyspnea, chest discomfort, near-syncope or syncope, abdominal symptoms, bright red blood per rectum, hematuria, melena, or other GI or urinary symptoms. No focal neurologic symptoms, just some tingling in her feet when they are cold. [facility] Medical History Anxiety Asthma Cerebral palsy Depression Physical exam, pre-employment Home Medications albuterol sulfate 90 mcg/actuation aerosol inhaler (Ventolin HFA) 1 - 2 puff inhalation Q4H PRN PRN Wheezing ##1 11/22/21 [Rx Last Taken 01/27/22 10:00] oxycodone 5 mg tablet 5 mg PO Q6H PRN pain (scale score 7-10) 5 days #24 tabs 02/25/22 [Rx Last Taken Unknown] Allergy/AdvReac Type Severity Reaction Status Date / Time ceftriaxone [From Rocephin] Allergy Hives Verified 03/08/22 21:50 sulfamethoxazole AdvReac Hives Verified 03/08/22 21:50 [From Bactrim] trimethoprim [From Bactrim] AdvReac Hives Verified 03/08/22 21:50 Social History Smoking Status: Former smoker ROS ROS ED Constitutional Constitutional ED: Reports fatigue; Denies chills or fever(s) Eyes Eyes: Denies change in vision or diplopia ENT ENT ED: Denies rhinorrhea or sore throat Cardiovascular Cardiovascular: Denies chest pain or palpitations Respiratory/Chest Respiratory/Chest: Denies cough or dyspnea Gastrointestinal Gastrointestinal: Reports other Details: Poor appetite due to feeling fatigued but able to eat and drink ; Denies abdominal pain, diarrhea, nausea or vomiting Genitourinary Genitourinary ED: Denies dysuria or hematuria Musculoskeletal Musculoskeletal: Denies back pain or neck pain Integumentary Denies abscess or rash Neurologic Neurologic: Reports paresthesias RLE and LLE; Denies headache(s) or weakness Psychiatric Psychiatric: Denies anxiety or suicidal thoughts EXAM Physical Exam Const Vital Signs: 03/08/22 21:45 03/08/22 22:41 Temperature 98.5 F Temperature Source Temporal Pulse Rate 72 Respiratory Rate 16 Respiratory Pattern Normal Blood Pressure 137/83 H Blood Pressure Mean 101 Pulse Ox 98 Oxygen Delivery Method Room Air Positive well nourished and well developed General Appearance ED: well developed and NAD HEENT Reports moist mucous membranes normocephalic and atraumatic Eyes PERRL and EOMs intact bilaterally Neck full ROM and supple Resp normal respiratory effort and clear to auscultation bilaterally Cardio regular rate, regular rhythm, no murmurs and peripheral pulses 2+ throughout GI non-tender and non-distended Auscultation: normoactive bowel sounds Palpation: soft Back/Spine no CVA tenderness General Back: other FROM Extremity normal to inspection General Extremety ED: Negative for edema, pulses abnormal or tenderness General Extremity: Negative for edema or pulses abnormal Neuro oriented x3, CN's II-XII intact bilaterally and no sensory deficits noted Sensorium / Orientation: awake and alert Motor Exam: strength 5/5 throughout Skin no rashes or lesions noted and no wounds MDM MDM MDM Narrative Medical decision making narrative: Blood counts are reassuring, there is no thrombocytopenia, her anemia is improving since he has been taking iron, so that is unlikely to be the cause of her fatigue. She is a little dehydrated, unknown if that is the etiology of her fatigue or a consequence since she is not eating may be drinking as much. Her vital signs are okay, her blood pressure is a little on the high side but I do not think she is preeclamptic here as cause for all of this. At this time I am happy to have her be discharged, encourage fluids, follow-up with her [employer] for reevaluation of her fatigue and her blood pressure. She did feel little better after IV fluids. Lab Data Attestation: I reviewed the patient's lab results. Labs: Laboratory Results - last 24 hr 03/08/22 03/08/22 23:00 23:00 WBC 10.9 RBC 4.08 L Hgb 11.3 L Hct 35.3 L MCV 86.5 MCH 27.7 MCHC 32.0 RDW Std Deviation 41.0 RDW Coeff of Franco 13.1 Plt Count 347 MPV 9.8 Immature Gran % (Auto) 0.300 Neut % (Auto) 56.2 Lymph % (Auto) 31.8 [place] % (Auto) 7.4 Eos % (Auto) 4.0 Baso % (Auto) 0.3 Absolute Neuts (auto) 6.1 Absolute Lymphs (auto) 3.48 Nucleated RBC % 0 Sodium 141 Potassium 4.1 Chloride 109 H Carbon Dioxide 26.0 Anion Gap 6 BUN 21 H Creatinine 0.71 Estim Creat Clear Calc 114.72 Est GFR (MDRD) Af Amer 126 Est GFR (MDRD) Non-Af 104 BUN/Creatinine Ratio 29.7 H Glucose 86 Calcium 8.8 Discharge Plan Triage Chief Complaint: Fatigue ED Provider: Siddhartha Evans Dx/Rx/DC Orders Clinical Impression: Fatigue, Anemia, , Dehydration, mild Instructions: ED Weakness (Uncertain Cause) Prescriptions: No Action albuterol sulfate [Ventolin HFA] 90 mcg/actuation HFA aerosol inhaler 1 - 2 puff inhalation Q4H PRN PRN (Reason: Wheezing) Qty: 1 0RF oxycodone 5 mg tablet 5 mg PO Q6H PRN (Reason: pain (scale score 7-10)) 5 Days Qty: 24 0RF Primary Care Provider: Care Physician,No Primary Referrals: Doctor,Your [Non-Staff] - 2 Days (if able, for reevaluation and blood pressure recheck) Activity Restrictions/Additional Instructions: Drink plenty of fluids. Disposition Disposition: Home, Self Care
[2022-03-09 00:10] LABS: Anion Gap 6 (5-15); BUN 21 mg/dL (7-18); BUN/Creat Ratio 29.7 RATIO (10-20); Calcium,Total 8.8 mg/dL (8.5-10.1); Chloride 109 mmol/L (98-107); Creatinine, Serum 0.71 mg/dL (0.55-1.02); EST Glomerular Filtration Rate 104 mL/min (>60); Est Glom Filt Rate - Afr Amer 126 mL/min (>60); Estimated Creatinine Clearance 114.72 ml/min; Glucose 86 mg/dL (74-106); Potassium 4.1 mmol/L (3.5-5.1); Sodium Level 141 mmol/L (136-145)
[2022-03-09 00:14] LABS: Absolute Lymphocyte Count 3.48 X10^3/uL (0.83-4.51); Absolute Neutrophil Count 6.1 X10^3/uL (2.0-7.7); Basophil# 0.03 X10^3/uL; Basophil% 0.3 % (0-1); Eosinophil# 0.44 X10^3/uL; Hematocrit 35.3 % (37-47); Hemoglobin 11.3 g/dL (12.0-15.0); Lymphocyte # 3.48 X10^3/ul (0.83-4.51); Lymphocyte % 31.8 % (19-41); Mean Corpuscular Hgb 27.7 pg (27.0-32.0); Mean Corpuscular Volume 86.5 fL (81-99); Mean Platelet Vol. 9.8 fl (6.2-12.0); Monocyte# 0.81 X10^3/uL; Monocyte% 7.4 % (0-10); NRBC Flagged by Analyzer 0 % (0-5); Neutrophil # 6.14 X10^3/uL (2.7-7.7); Neutrophil % 56.2 % (47-70); Platelet Count 347 K/mm3 (150-450); RBC Distribution Width CV 13.1 % (11.6-14.6); Red Blood Count 4.08 M/mm3 (4.2-5.4); White Blood Count 10.9 K/mm3 (4.4-11.0)
[2022-03-09 01:16] VITALS: BP 128/70; PULSE 60; RESP 16
== END 2022-03-09 01:20 | disposition home or self-care (01) ==
PROVIDERS: Emergency Provider Emergency Medicine; Visit Provider Emergency Medicine
DX: O99.893 Other specified diseases and conditions complicating puerperium (principal); O99.285 Endocrine, nutritional and metabolic diseases complicating the puerperium; O90.81 Anemia of the puerperium; D64.9 Anemia, unspecified; E86.0 Dehydration; R53.83 Other fatigue; Z87.891 Personal history of nicotine dependence
CPT/HCPCS: 80048; 85025; 99282; J7040

== ENCOUNTER → 2022-05-12 | Outpatient (CLI) | payer MEDICAID, SELFPAY | END | disposition home or self-care (01) | LOC: LABSPEC 16:13 | PROVIDERS: Visit Provider Student in an Organized Health Care Education/Training Program | DX: N39.0 Urinary tract infection, site not specified (principal) | CPT/HCPCS: 87086; 87088; 87186 ==

== ENCOUNTER 2022-06-01 22:45 | Emergency (ER) | payer MEDICAID, SELFPAY ==
[2022-06-01 22:46] VITALS: BP 163/89; PULSE 75; RESP 20; TEMP 35.8; BMI 41.1
[2022-06-01 23:22] VITALS: O2SAT 99
--- NOTE | 2022-06-01 23:52 | EX.ED.DYSGE1 ---
HPI History of Present Illness Chief Complaint: Ear Problem Narrative Narrative: Patient is a 26-year-old female who reports no significant past medical history other than she can get ear infections very easily. She states that she was goofing around with her when she got water shot into her left ear. She states since that time there is been left ear pain and decreased hearing. She denies any discharge fevers or chills but states she is concerned for an infection and therefore comes in for evaluation. PFSH PFS Medical History Anxiety Asthma Cerebral palsy Depression Physical exam, pre-employment Home Medications albuterol sulfate 90 mcg/actuation aerosol inhaler (Ventolin HFA) 1 - 2 puff inhalation Q4H PRN PRN Wheezing ##1 11/22/21 [Rx Last Taken 01/27/22 10:00] oxycodone 5 mg tablet 5 mg PO Q6H PRN pain (scale score 7-10) 5 days #24 tabs 02/25/22 [Rx Last Taken Unknown] [id number] 3.3 mg-3 mg-10 mg-0.5 mg/mL ear drops,susp (Cortisporin-TC) 4 drp LEFT EAR 4X/DAY 10 days #10 mL 06/01/22 [Rx Last Taken Unknown] Allergy/AdvReac Type Severity Reaction Status Date / Time ceftriaxone [From Rocephin] Allergy Hives Verified 03/08/22 21:50 sulfamethoxazole AdvReac Hives Verified 03/08/22 21:50 [From Bactrim] trimethoprim [From Bactrim] AdvReac Hives Verified 03/08/22 21:50 Social History Smoking Status: Former smoker ROS ROS ED Constitutional Constitutional ED: Denies chills or fever(s) ENT ENT ED: Reports ear pain left; Denies sore throat Cardiovascular Cardiovascular: Denies chest pain Respiratory/Chest Respiratory/Chest: Denies cough or dyspnea Gastrointestinal Gastrointestinal: Denies abdominal pain, diarrhea, nausea or vomiting Genitourinary Genitourinary ED: Denies dysuria Musculoskeletal Musculoskeletal: Denies myalgias Integumentary Denies rash Neurologic Neurologic: Denies headache(s) Hematologic/Lymphatic Hematologic/Lymphatic: Denies easy bleeding or easy bruising EXAM Physical Exam Const Vital Signs: 06/01/22 22:46 06/01/22 23:22 Temperature 96.4 F L Temperature Source Temporal Pulse Rate 75 Respiratory Rate 20 H Blood Pressure 163/89 H Blood Pressure Mean 113 Pulse Ox 99 Oxygen Delivery Method Room Air Positive well nourished, well developed and obese General Appearance ED: well developed Nutritional Appearance: obese HEENT HEENT Narrative: Right canal and TM are normal. The left canal is erythematous and edematous concerning for otitis media without purulent discharge. The left TM is normal without signs of secondary infection. There is pain with external manipulation of the left ear as well. No mastoid pain bilaterally. No overlying soft tissue changes to the ear to suggest malignant otitis externa Eyes PERRL and EOMs intact bilaterally Neck supple Resp normal respiratory effort and clear to auscultation bilaterally Cardio regular rate and regular rhythm Extremity normal to inspection Neuro oriented x3 and CN's II-XII intact bilaterally Sensorium / Orientation: alert Psych mental status grossly normal Skin no rashes or lesions noted MDM MDM MDM Narrative Medical decision making narrative: Patient presented to the ER hypertensive but otherwise afebrile. She had no changes to suggest malignant otitis externa or acute mastoiditis. By exam there are no changes to this a otitis media but the left ear canal is erythematous and edematous compared to right and there is pain with external manipulation indicating she has otitis externa. As there is no signs of systemic infection or malignant otitis externa there is no need for work-up and patient be given antibiotics and discharged home. History & Record Review Discussion w/independent historian: Patient Discharge Plan Triage Chief Complaint: Ear Problem ED Provider: Clay Shen Dx/Rx/DC Orders Clinical Impression: Acute otitis externa of left ear Instructions: ED External Ear Infection (Adult) Prescriptions: New Cortisporin-TC 3.3-3-10-0.5 mg/mL drops,suspension 4 drp LEFT EAR 4X/DAY 10 Days Qty: 10 0RF No Action albuterol sulfate [Ventolin HFA] 90 mcg/actuation HFA aerosol inhaler 1 - 2 puff inhalation Q4H PRN PRN (Reason: Wheezing) Qty: 1 0RF oxycodone 5 mg tablet 5 mg PO Q6H PRN (Reason: pain (scale score 7-10)) 5 Days Qty: 24 0RF Primary Care Provider: VAUGHN CHATTERJEE Referrals: VAUGHN CHATTERJEE [Other] Activity Restrictions/Additional Instructions: Your exam shows changes consistent with an outer ear infection and therefore use the eardrops as directed. Continue with Tylenol or Motrin for pain control and return to the ER should you have any further concerns. Disposition Disposition: Home, Self Care Discharge Date/Time: 06/02/22 00:13
[2022-06-02] MEDS: Neomycin/Polymyxin/Dexameth 5ML OPTH.BTL 4 DRP OTIC (00:09)
== END 2022-06-02 00:13 | disposition home or self-care (01) ==
PROVIDERS: Emergency Provider Emergency Medicine; Visit Provider Emergency Medicine
DX: H60.502 Unspecified acute noninfective otitis externa, left ear (principal); Z87.891 Personal history of nicotine dependence; J45.909 Unspecified asthma, uncomplicated; Z79.899 Other long term (current) drug therapy
CPT/HCPCS: 99282

== ENCOUNTER 2022-10-05 17:27 | Outpatient (RCR) | payer MEDICAID, SELFPAY | END 2022-10-05 19:00 | disposition home or self-care (01) | LOC: PT 17:27 | DX: Z00.00 Encounter for general adult medical examination without abnormal findings (principal) ==

== ENCOUNTER 2023-02-05 21:13 | Emergency (ER) | payer MEDICAID, SELFPAY ==
[2023-02-05 21:16] VITALS: BP 146/65; PULSE 91; RESP 100; TEMP 35.8; O2SAT 9
[2023-02-05 21:21] VITALS: TEMP 35.8; BMI 42.0
--- NOTE | 2023-02-05 22:00 | CT_ITS ---
INDICATION: pain, weakness EXAMINATION: CT SPINE - CT Spine Lumbar W/O Contrast Injection COMPARISON: None. A radiation dose optimization technique was used for this scan. Findings: Serial CT axial images through the lumbar spine, with coronal and sagittal reformatted series. BONES: No evidence of lumbar spine fracture or subluxation. No concerning bony lesion or abnormal sclerosis to suggest lesion. DISCS/JOINTS: Broad-based posterior disc bulge at L4-L5 level without significant central bony spinal canal stenosis. No more than mild caudal neuroforaminal narrowing is present. Lower lumbar bilateral moderate multilevel facet degenerative change, especially prominent for age. SOFT TISSUES: Soft tissue structures are unremarkable. CT/Spine Lumbar without Contrast IMPRESSION: Lumbar spine without evidence of acute fracture. Broad-based posterior disc bulge at L4-L5 level without significant central bony spinal canal stenosis. No more than mild caudal neuroforaminal narrowing is present. Lower lumbar bilateral moderate multilevel facet degenerative change, especially prominent for age. Electronically Signed: Fermin Hwang MD at 23:37 EST ,
--- NOTE | 2023-02-05 22:00 | EKG12_ITS ---
Test Reason : DYSRHYTHMIA Blood Pressure : / mmHG Vent. Rate : 076 BPM Atrial Rate : 076 BPM P-R Int : 142 ms QRS Dur : 084 ms QT Int : 422 ms P-R-T Axes : 000 027 047 degrees QTc Int : 474 ms Normal sinus rhythm Normal ECG Confirmed by WAYNE CHANDLER, MARICRUZ ([id number]), index editor NICHOLAS MAYO ([id number]) on 02/08/2023 10:48:15 AM Referred By: [facility]OPE Confirmed By:MARICRUZ BLACK MD
--- NOTE | 2023-02-05 22:00 | CT_ITS ---
INDICATION: spasms, confusion EXAMINATION: CT BRAIN - CT Head or Brain W/O Contrast Injection TECHNIQUE: Serial CT axial images were obtained of the head without intravenous contrast. A radiation dose optimization technique was used for this scan. COMPARISON: None. Findings: Serial CT axial images of the head without contrast. BRAIN PARENCHYMA: Normal aceves-white matter differentiation. No evidence of intraparenchymal hemorrhage or hyperattenuating extra-axial fluid collection. BONES: Paranasal sinuses are clear. SCALP/REMAINING SOFT TISSUES: Unremarkable. ASPECTS Score for Acute Strokes, if applicable: 10 CT/Brain/Head without Contrast IMPRESSION: No acute intracranial hemorrhage in this noncontrast head CT. Electronically Signed: Fermin Hwang MD at 23:31 EST ,
--- NOTE | 2023-02-05 22:02 | EX.ED.DYSGE1 ---
HPI History of Present Illness Chief Complaint: General Illness Detail of Chief Complaint: Spasms, weakness, back pain Informant: patient Narrative Narrative: Patient presents with a 3-week history of a full sensation in her lower back with intermittent leg weakness and spasms. She states she will also have spasms in her arms that she cannot control. She has a history of mild cerebral palsy. She states she has been told she has bulging disc at L3-4. She was scheduled to see a Dr. Perkins at [facility] recently, but states he was called to emergency surgery and her appointment was delayed. She reports intermittent confusion and difficulty finding words. [facility] Medical History Anxiety Asthma Cerebral palsy Depression Physical exam, pre-employment Home Medications albuterol sulfate 90 mcg/actuation aerosol inhaler (Ventolin HFA) 1 - 2 puff inhalation Q4H PRN PRN Wheezing ##1 11/22/21 [Rx Last Taken 01/27/22 10:00] Allergy/AdvReac Type Severity Reaction Status Date / Time ceftriaxone [From Rocephin] Allergy Hives Verified 03/08/22 21:50 sulfamethoxazole AdvReac Hives Verified 03/08/22 21:50 [From Bactrim] trimethoprim [From Bactrim] AdvReac Hives Verified 03/08/22 21:50 Social History Smoking Status: Current some day smoker tobacco type: cigarettes ROS ROS ED Constitutional Constitutional ED: Denies chills or fever(s) Eyes Eyes: Denies discharge from eye(s) ENT ENT ED: Denies discharge from eye(s), rhinorrhea or sore throat Cardiovascular Cardiovascular: Denies chest pain or palpitations Respiratory/Chest Respiratory/Chest: Denies cough or dyspnea Gastrointestinal Gastrointestinal: Denies abdominal pain, nausea or vomiting Genitourinary Genitourinary ED: Denies dysuria Musculoskeletal Musculoskeletal: Denies back pain or extremity pain Integumentary Denies Abrasions or rash Neurologic Neurologic: Denies headache(s) or weakness Psychiatric Psychiatric: Denies anxiety or depression Allergic/Immunologic Allergic/Immunologic ED: Denies lip swelling or urticaria EXAM Physical Exam Const Vital Signs: 02/05/23 21:16 02/05/23 21:18 12/01/23 21:21 Temperature 96.5 F L 96.5 F L Temperature Source Temporal Temporal Pulse Rate 91 Respiratory Rate 100 H Respiratory Effort Normal Non-Labored Respiratory Pattern Normal Blood Pressure 146/65 H Blood Pressure Mean 92 Pulse Ox 9 Oxygen Delivery Method Room Air Room Air Positive well nourished and well developed General Appearance ED: well developed HEENT Reports moist mucous membranes Eyes EOMs intact bilaterally Neck no lymphadenopathy Chest Wall inspection of chest normal and palpation of chest normal Resp normal respiratory effort and clear to auscultation bilaterally Cardio regular rate and regular rhythm GI normal to inspection, nondistended, normoactive bowel sounds Extremity Extremity Narrative: Full range of motion of all extremities at this time without difficulty. Neuro Neuro Narrative: Patient alert and oriented. Full range of motion of all extremities. She is able to peanut picker both legs up off the bed independently. Strong distal pulses are noted. Psych mental status grossly normal Skin no rashes or lesions noted MDM MDM MDM Narrative Medical decision making narrative: Patient placed on classroom monitor. IV line initiated. Labwork obtained to evaluate for leukocytosis, anemia, and electrolyte derangement. CT scan of the head obtained along with CT scan the lumbar spine. She presents at 10 PM on a Wednesday evening when I do not have MRI available. I do not see any acute findings on my physical exam to indicate she needs an emergent MRI tonight. Lab Data Attestation: I reviewed the patient's lab results. Labs: Laboratory Results - last 24 hr 02/05/23 22:20 WBC 10.5 RBC 4.41 Hgb 12.8 Hct 38.4 MCV 87.1 MCH 29.0 MCHC 33.3 RDW Std Deviation 41.5 RDW Coeff of Franco 13.0 Plt Count 263 MPV 9.9 Immature Gran % (Auto) 0.300 Neut % (Auto) 59.5 Lymph % (Auto) 29.3 [place] % (Auto) 8.2 Eos % (Auto) 2.1 Baso % (Auto) 0.6 Absolute Neuts (auto) 6.3 Absolute Lymphs (auto) 3.08 Nucleated RBC % 0 Sodium 139 Potassium 4.3 Chloride 110 H Carbon Dioxide 26.0 Anion Gap 3 L BUN 13 Creatinine 0.70 Estim Creat Clear Calc 115.32 Est GFR (MDRD) Af Amer 126 Est GFR (MDRD) Non-Af 104 BUN/Creatinine Ratio 18.4 Glucose 92 Calcium 9.2 Magnesium 2.4 Total Bilirubin 0.50 Direct Bilirubin 0.19 AST 14 L ALT 19 Alkaline Phosphatase 51 Total Protein 7.3 Albumin 3.8 Globulin 3.5 Serum , Qual NEGATIVE Radiography Diagnostic Testing: Clinical Impression(s) from Imaging Studies Brain CT 02/05/23 22:00 IMPRESSION: No acute intracranial hemorrhage in this noncontrast head CT. Electronically Signed: Fermin Hwang MD at 23:31 EST , Lumbar Spine CT 02/05/23 22:00 IMPRESSION: Lumbar spine without evidence of acute fracture. Broad-based posterior disc bulge at L4-L5 level without significant central bony spinal canal stenosis. No more than mild caudal neuroforaminal narrowing is present. Lower lumbar bilateral moderate multilevel facet degenerative change, especially prominent for age. Electronically Signed: Fermin Hwang MD at 23:37 EST , EKG Initial EKG: Attestation: I personally reviewed and interpreted this EKG as follows: Interpretation: Sinus Rhythm (Sinus at 76 with no acute ischemia.) Treatment and Re-Evaluation :: CBC reveals white count of 10.5 and hemoglobin 12.8. Differential is unremarkable. Chemistry studies are normal. LFTs are unremarkable and test is negative. CT scan of the head shows no acute intracranial findings. CT of the lumbar spine reveals no evidence of fracture. There is a broad-based posterior disc bulge at L4-L5 without significant central bony spinal canal stenosis. No more than mild caudal neuroforaminal narrowing is present. I did discuss test results quickly with the patient at bedside while we are awaiting a urinalysis. Due to a extremely busy ER and a critical trauma patient I needed to care for, patient stated that she was okay with leaving knowing that her CTs and labs were okay. She left prior to any discharge instructions. Discharge Plan Triage Chief Complaint: General Illness ED Provider: Mishel Cavanaugh Dx/Rx/DC Orders Clinical Impression: Back muscle spasm, Back pain Prescriptions: No Action albuterol sulfate [Ventolin HFA] 90 mcg/actuation HFA aerosol inhaler 1 - 2 puff inhalation Q4H PRN PRN (Reason: Wheezing) Qty: 1 0RF Primary Care Provider: Care Physician,No Primary Referrals: Care Physician,No Primary [Primary Care Provider] - Disposition Disposition: Elopement
[2023-02-05] MEDS: diazePAM 5 MG Tablet 2.5 MG PO (22:10)
[2023-02-05] MEDS: 0.9% Normal Saline (1000mL) 1,000 ML 150 ML IV (22:12)
[2023-02-05 22:36] LABS: Absolute Lymphocyte Count 3.08 X10^3/uL (0.83-4.51); Absolute Neutrophil Count 6.3 X10^3/uL (2.0-7.7); Basophil# 0.06 X10^3/uL; Basophil% 0.6 % (0-1); Eosinophil# 0.22 X10^3/uL; Eosinophils% 2.1 % (0-5); Hematocrit 38.4 % (37-47); Hemoglobin 12.8 g/dL (12.0-15.0); Lymphocyte # 3.08 X10^3/ul (0.83-4.51); Lymphocyte % 29.3 % (19-41); Mean Corp Hgb Conc 33.3 g/dL (32-36); Mean Corpuscular Volume 87.1 fL (81-99); Mean Platelet Vol. 9.9 fl (6.2-12.0); Monocyte# 0.86 X10^3/uL; Monocyte% 8.2 % (0-10); NRBC Flagged by Analyzer 0 % (0-5); Neutrophil # 6.25 X10^3/uL (2.7-7.7); Neutrophil % 59.5 % (47-70); Platelet Count 263 K/mm3 (150-450); RBC Distribution Width SD 41.5 fl (35.1-43.9); Red Blood Count 4.41 M/mm3 (4.2-5.4); White Blood Count 10.5 K/mm3 (4.4-11.0)
[2023-02-05 22:45] LABS: Internal QC Validated? YES +Cl - CLEAR BKGD; Pregnancy, Serum, hCG Quali. NEGATIVE Negative
[2023-02-05 22:54] LABS: AST(SGOT) 14 U/L (15-37); Alanine Aminotransfer ALT/SGPT 19 U/L (13-56); Albumin, Serum 3.8 g/dL (3.2-5.0); Alkaline Phosphatase 51 U/L (45-117); Anion Gap 3 (5-15); BUN 13 mg/dL (7-18); BUN/Creat Ratio 18.4 RATIO (10-20); Bilirubin, Direct 0.19 mg/dL (0.00-0.30); Calcium,Total 9.2 mg/dL (8.5-10.1); Chloride 110 mmol/L (98-107); EST Glomerular Filtration Rate 104 mL/min (>60); Est Glom Filt Rate - Afr Amer 126 mL/min (>60); Estimated Creatinine Clearance 115.32 ml/min; Globulin 3.5 g/dL (2.2-4.2); Glucose 92 mg/dL (74-106); Magnesium 2.4 mg/dL (1.6-2.6); Potassium 4.3 mmol/L (3.5-5.1); Protein, Total 7.3 g/dL (6.4-8.2); Sodium Level 139 mmol/L (136-145)
== END 2023-02-06 01:37 | disposition left against medical advice (07) ==
PROVIDERS: Emergency Provider Emergency Medicine; Visit Provider Emergency Medicine
DX: M54.9 Dorsalgia, unspecified (principal); F17.210 Nicotine dependence, cigarettes, uncomplicated; M62.830 Muscle spasm of back
CPT/HCPCS: 70450; 72131; 80048; 80076; 83735; 84703; 85025; 93005; 96360; 96361; 99285; A4216

== ENCOUNTER 2023-04-23 15:05 | Outpatient (RCR) | payer MEDICAID, SELFPAY ==
--- NOTE | 2023-04-23 16:00 | HP.PTEVAL_ITS ---
Patient's Visit Information Visit Information Visit Information: TED DUENAS is a 27 year old F referred to Physical Therapy by CATRACHO MCFADDEN with a diagnosis of LBP. Date of Evaluation: 04/23/23 Physical Therapist: Narinder Mobley, PT, ATC Visit Plan Frequency: 2-3x /Week Duration: 4 Weeks Plan: Core stab ex's in neutral spine position, postural edu, B LE stretching and strengthening, and HEP Subjective Subjective: Pt reports she has had chronic LBP for several years. 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 Pt reports she has been treated by a chiropractor and a physical therapist in the past that made no difference. Pt reports her pain originates in her LB and will on occasion radiate upp her back. Pt also notes she has pain that radiates down both of her legs, and effects different regions of her LE's all the way down to the toes. Pt reports sleep difficulty secondary to pain. Pt notes bed mobility is very difficult secondary to pain. Pt reports nothing really provokes her pain or takes it away. Pt reports she always has pressure in her LB, and just wants for it to go away. 9/10 LBP while sitting here at rest, 10/10 pain at worst. Pt reports when her LB is sore, she will experience visual problems and a shooting pain symptom in her ear. Pt will also experience concentration issues. Pain LBP: Pain Intensity (Out of 10): 9 Pain Intensity Range: 10 Objective Objective: Gait: Pt ambulates with an unnatural gait pattern, most likely due to CP. Lacks leg extension, and small cadance Neuro: B LE's sensation is WNL to light touch. B patellar reflex= 3+/3 MMT: B LE's are grossly 3+/5 throughout and provoke LBP ROM: Pt is severely limited with L/S ext. All other motions are minimally limited. Repeated movements: Both flexion and extension provoke sx's in to B LE's Balance/Special Test Scores Oswestry Low Back Score: 38 Goals Goal 1:: Decrease LBP x 50% to aid with sleep Goal Time Frame: 4-6 Weeks Goal 2:: Increase L/S ROM x 1 grade to aid with IADL's Goal Time Frame: 4-6 Weeks Goal 3:: Increase B LE strength x 1 grade to aid with ambulation Goal Time Frame: 4-6 Weeks Goal 4:: I with HEP Goal Time Frame: 4-6 Weeks Rehabilitation Potential Physical Therapy Diagnosis: Pt has LBP, difficulty with ambulation, and dif ficulty with all IADL's secondary to core instability Rehabilitation Potential: Good Anticipated Interventions Patient/Client Instruction: Educate patient on: Condition and Plan of Care For the Purpose of:: To improve self management Therapeutic Exercise to Include: Strength training, Balance training, Postural training, Flexibilty training, Active ROM and Dynamic Lumbar Stabilization For the Purpose of:: To decrease pain, To increase ROM and To improve muscle performance and motor function Text: Thank you for the opportunity to evaluate your patient. For Medicare and Medicare HMO plans, please review the plan of care and approve it. It will need to be FAXED BACK to us at [phone] for Medicare purposes. For Medicare only, by signing this I certify the plan of care. Please let me know if there are questions or concerns regarding this plan of care. Physician Signature: Date:
--- NOTE | 2023-06-17 17:29 | HP.PT.NRP ---
Patient Information Patient Information: TED DUENAS was seen in my office for initial evaluation on 04/23/23. The following Plan of Care was established for this patient: POC Established Initial Frequency: 2-3x /Week Initial Duration: 4 Weeks Anticipated Interventions Patient/Client Instruction: Educate patient on: Condition and Plan of Care For the Purpose of:: To improve self management Therapeutic Exercise to Include: Strength training, Balance training, Postural training, Flexibilty training, Active ROM and Dynamic Lumbar Stabilization For the Purpose of:: To decrease pain, To increase ROM and To improve muscle performance and motor function Last Seen Last Seen: This patient was last seen in our office . Pertinent comments regarding their Physical therapy will appear below: Pt was evaluated on 04/23/23 for LBP. Pt has not been treated since that time and is discontinued from [facility] At this point I will be discontinuing this patient from physical therapy. I would be happy to see this patient again in the future if found appropriate by the physician. Thank you! Narinder Mobley, PT, ATC Balance/Gait/Functional tests Balance/Special Test Scores Oswestry Low Back Score: 38
== END 2023-04-23 19:00 | disposition home or self-care (01) ==
LOC: PT 15:05
DX: M54.50 Low back pain, unspecified (principal)
CPT/HCPCS: 97161

== ENCOUNTER 2024-01-08 22:38 | Emergency (ER) | payer MEDICAID, SELFPAY ==
[2024-01-08 22:38] VITALS: BP 158/100; PULSE 90; RESP 18; TEMP 36.6; O2SAT 99; BMI 44.4
--- NOTE | 2024-01-08 23:43 | EX.ED.DYSGE1 ---
HPI History of Present Illness Chief Complaint: Back Informant: patient and spouse/S.O. Narrative Narrative: Patient is a 28-year-old female with past medical history of anxiety depression asthma and mild cerebral palsy. She also states she has chronic low back pain and is being worked up by her family doctor her potential nerve impingement. She states that she has been taking Celebrex which helps control her pain but she lost the prescription and has not had it for the past 4 days. She states there is been no trauma she denies any fevers any dysuria concern for recent surgical procedure or loss of bowel or bladder control or IV drug use. However she has been taking [id number] medications and is not been helping like the Celebrex and therefore she comes in for evaluation [facility] Medical History Anxiety Asthma Cerebral palsy Depression Physical exam, pre-employment Home Medications ?Medication ?Instructions ?Recorded ?Last Taken ?Type albuterol sulfate 90 mcg/actuation 1 - 2 puff inhalation Q4H PRN PRN 11/22/21 01/27/22 10:00 Rx aerosol inhaler (Ventolin HFA) Wheezing ##1 celecoxib 200 mg capsule (Celebrex) 200 mg PO BID PRN pain 30 days #60 01/08/24 Unknown Rx caps Allergy/AdvReac Type Severity Reaction Status Date / Time ceftriaxone (From Rocephin) Allergy Hives Verified 01/08/24 22:40 sulfamethoxazole (From AdvReac Hives Verified 01/08/24 22:40 Bactrim) trimethoprim (From Bactrim) AdvReac Hives Verified 01/08/24 22:40 Social History Smoking Status: Current some day smoker tobacco type: cigarettes ROS ROS ED Constitutional Constitutional ED: Denies chills or fever(s) Eyes Eyes: Denies change in vision ENT ENT ED: Denies sore throat Cardiovascular Cardiovascular: Denies chest pain Respiratory/Chest Respiratory/Chest: Denies cough or dyspnea Gastrointestinal Gastrointestinal: Denies abdominal pain, diarrhea, nausea or vomiting Genitourinary Genitourinary ED: Denies dysuria or hematuria Musculoskeletal Musculoskeletal: Reports back pain Integumentary Denies rash Neurologic Neurologic: Denies headache(s) or paresthesias Psychiatric Psychiatric: Reports anxiety and depression Hematologic/Lymphatic Hematologic/Lymphatic: Denies easy bleeding or easy bruising EXAM Physical Exam Const Vital Signs: 01/08/24 22:38 01/09/24 00:15 Temperature 98 F 98 F Temperature Source Temporal Pulse Rate 90 88 Respiratory Rate 18 16 Blood Pressure 158/100 H 112/76 Blood Pressure Mean 119 88 Pulse Ox 99 100 Oxygen Delivery Method Room Air Positive well nourished, well developed and obese General Appearance ED: well developed; Negative for pallor Nutritional Appearance: obese HEENT HEENT Narrative: Normocephalic atraumatic Eyes PERRL and EOMs intact bilaterally General Eye ED: Negative for scleral icterus Neck supple Neck Narrative: No nuchal rigidity or meningeal signs Resp normal respiratory effort and clear to auscultation bilaterally Cardio regular rate and regular rhythm Rate: other Other Details: Radial and carotid pulses are equal and symmetric Heart is regular rate and rhythm without murmurs rubs or gallops Back/Spine Back/Spine Narrative: No bony deformity or step-off of the thoracic or lumbar spine no midline tenderness to palpation There is left paralumbar tenderness and spasm noted. There is mild pain with palpation in the left sacroiliac joint region. Negative straight leg raise. No clonus or Babinski. Patellar reflexes are plus 1 out of 4 bilaterally. No saddle anesthesia No secondary soft tissue skin findings to suggest trauma or infection Extremity normal to inspection Neuro oriented x3, CN's II-XII intact bilaterally and no sensory deficits noted Sensorium / Orientation: alert Psych mental status grossly normal Skin no rashes or lesions noted and no wounds General Skin Exam: Negative for jaundice or pallor MDM MDM MDM Narrative Medical decision making narrative: Patient arrived to the ER hypertensive but it was in pain and otherwise vitals are stable. She reports a longstanding history of back pain and reports that there has been no recent trauma or excessive activity surgical procedures or infectious changes. Therefore I have low concern for cauda equina or epidural abscess or discitis. Without dysuria or hematuria have low concern for UTI/pyelonephritis or kidney stone. Without trauma concern for compression fracture or spondylolisthesis is low as well. Therefore I felt no need for imaging or laboratory studies. The patient was given symptomatic medication in the ER and reported improvement of her pain. Her Celebrex will be represcribed as this has helped her in the past and she is otherwise safe for discharge that she did not show signs of neuro claudication or infectious process History & Record Review Discussion w/independent historian: Patient and Significant other Discharge Plan Triage Chief Complaint: Back ED Provider: Clay Shen Dx/Rx/DC Orders Clinical Impression: Acute exacerbation of chronic low back pain, Anxiety and depression, Cerebral palsy, Encounter for medication refill Instructions: ED Back Pain (Acute or Chronic) Prescriptions: New celecoxib [Celebrex] 200 mg capsule 200 mg PO BID PRN (Reason: pain) 30 Days Qty: 60 0RF No Action albuterol sulfate [Ventolin HFA] 90 mcg/actuation HFA aerosol inhaler 1 - 2 puff inhalation Q4H PRN PRN (Reason: Wheezing) Qty: 1 0RF Primary Care Provider: VAUGHN CHATTERJEE Referrals: VAUGHN CHATTERJEE [Other] Activity Restrictions/Additional Instructions: Please begin taking your Celebrex as directed for improved pain control. Continue to follow-up with your doctor and obtain your outpatient MRI to further assess the cause of your low back pain and return to the ER should you have any further concerns Print Language: Armenian Disposition Disposition: Home, Self Care Discharge Date/Time: 01/09/24 00:16
[2024-01-08] MEDS: Ondansetron ODT 4 MG Tablet PO (23:52)
[2024-01-08] MEDS: diazePAM 5 MG Tablet PO (23:53)
[2024-01-08] MEDS: morphine 10 MG/ML Syringe 8 MG IM (23:53)
[2024-01-09] MEDS: Celecoxib 200 MG Capsule 400 MG PO (00:14)
[2024-01-09 00:15] VITALS: BP 112/76; PULSE 88; RESP 16; TEMP 36.6; O2SAT 100
== END 2024-01-09 00:16 | disposition home or self-care (01) ==
PROVIDERS: Emergency Provider Emergency Medicine; Visit Provider Emergency Medicine
DX: M54.50 Low back pain, unspecified (principal); G80.9 Cerebral palsy, unspecified; G89.29 Other chronic pain; Z76.0 Encounter for issue of repeat prescription; J45.909 Unspecified asthma, uncomplicated; F17.210 Nicotine dependence, cigarettes, uncomplicated
CPT/HCPCS: 96372; 99282

== ENCOUNTER 2024-02-10 02:54 | Emergency (ER) | payer MEDICAID, SELFPAY ==
[2024-02-10 02:56] VITALS: BP 150/79; PULSE 99; RESP 20; TEMP 36.8; O2SAT 100; BMI 44.8
--- NOTE | 2024-02-10 03:03 | EDS_ITS ---
HPI History of Present Illness Chief Complaint: Shortness of Breath Informant: patient Onset/Context/Timing Onset: Today Context: sudden Timing: Continuous Quality: Positive for Wheezing Worsened by: Nothing Relieved by: Nothing Associated Symptoms cough; Negative for rhinorrhea, post nasal drip, ear pain, fever, sore throat, chills, sweats, clear sputum, white sputum, yellow sputum or green sputum Chest Pain: Positive for Pressure (Heaviness) Narrative Narrative: Patient presents with shortness of breath that began tonight. Patient states it began rather suddenly. Patient admits to some pain in her chest. Patient states it feels like there is pressure and heaviness in her chest. Patient states nothing makes her symptoms worse and nothing makes them better. Patient admits to a cough but denies any sputum production. Patient states she used her inhaler at home with no improvement. Patient denies any fevers or chills. Patient states this feels similar to prior episodes of asthma exacerbation PE Risk Factors: Negative for Cancer, OCP + Smoking + > 35, Prior DVT or PE, Recent immobilization, Recent surgery or Recent travel [facility] Medical History (Updated 02/10/24 @ 05:[address] Freddie Mays, DO) Physical exam, pre-employment Asthma Depression Anxiety Cerebral palsy Home Medications ?Medication ?Instructions ?Recorded ?Last Taken ?Type celecoxib 200 mg capsule (Celebrex) 200 mg PO BID PRN pain 30 days #60 01/08/24 Unknown Rx caps albuterol sulfate 90 mcg/actuation 1 - 2 puff inhalation Q4H PRN PRN 02/10/24 Unknown Rx aerosol inhaler (Ventolin HFA) Wheezing ##1 phentermine 37.5 mg tablet 37.5 mg PO DAILY 02/10/24 Unknown History trazodone 100 mg tablet 100 mg PO QHS 02/10/24 Unknown History Allergy/AdvReac Type Severity Reaction Status Date / Time ceftriaxone (From Rocephin) Allergy Hives Verified 02/10/24 02:55 sulfamethoxazole (From AdvReac Hives Verified 02/10/24 02:55 Bactrim) trimethoprim (From Bactrim) AdvReac Hives Verified 02/10/24 02:55 Surgical History (Updated 02/10/24 @ 03:[address] Freddie Mays, DO) History of surgery on lower extremity Social History Smoking Status: Former smoker ROS ROS ED Constitutional Constitutional ED: Denies chills or fever(s) Eyes Eyes: Denies blurry vision or change in vision ENT ENT ED: Denies rhinorrhea or sore throat Cardiovascular Cardiovascular: Reports chest pain; Denies palpitations Respiratory/Chest Respiratory/Chest: Reports cough and dyspnea Gastrointestinal Gastrointestinal: Denies nausea or vomiting Genitourinary Genitourinary ED: Denies dysuria or hematuria Musculoskeletal Musculoskeletal: Denies back pain or neck pain Integumentary Denies abscess or rash Neurologic Neurologic: Denies headache(s) or weakness Allergic/Immunologic Allergic/Immunologic ED: Denies mouth swelling or urticaria EXAM Physical Exam Const Vital Signs: 02/10/24 02:56 02/10/24 02:56 02/10/24 03:30 Temperature 98.3 F Temperature Source Oral Pulse Rate 99 91 Respiratory Rate 20 H 18 Respiratory Effort Short of Breath Respiratory Depth Shallow Respiratory Pattern Tachypnea Normal Blood Pressure 150/79 H Blood Pressure Mean 102 Pulse Ox 100 Oxygen Delivery Method Room Air Room Air 02/10/24 04:55 02/10/24 04:56 Temperature Temperature Source Pulse Rate 79 92 Respiratory Rate 19 H 18 Respiratory Effort Respiratory Depth Respiratory Pattern Normal Blood Pressure 118/47 L Blood Pressure Mean 70 Pulse Ox 100 Oxygen Delivery Method Room Air Positive well nourished and well developed General Appearance ED: well developed and NAD HEENT Reports moist mucous membranes Neck supple, no meningeal signs and no JVD Resp normal respiratory effort Auscultation: diminished lung sounds Cardio regular rate and regular rhythm GI non-tender and non-distended Palpation: soft Neuro oriented x3, CN's II-XII intact bilaterally and no sensory deficits noted [place] Coma Scale: document GCS findings Spontaneous Obeys Commands Oriented 15 Sensorium / Orientation: alert Speech: speech normal Motor Exam: strength 5/5 throughout Psych mental status grossly normal MDM MDM MDM Narrative Medical decision making narrative: Differential diagnosis includes asthma exacerbation, pneumonia, bronchitis, cardiac dysrhythmia, cardiac ischemia, pulmonary embolism, and anxiety. EKG will be obtained to assess for cardiac dysrhythmia and cardiac ischemia. Chest x-ray will be obtained to assess for pneumonia and bronchitis. CBC will be obtained to assess for leukocytosis and anemia. Basic metabolic profile will be obtained to assess for electrolyte abnormality and renal function. D-dimer will be obtained to assess for pulmonary embolism. High-sensitivity troponin will be obtained to assess for cardiac ischemia. Lab Data Attestation: I reviewed the patient's lab results. Lab results narrative: CBC was reviewed and was within normal limits. D-dimer was reviewed and was normal at 0.38. Basic metabolic profile was reviewed and was within normal limits. High-sensitivity troponin was reviewed and was normal at 4. Labs: Laboratory Results - last 24 hr 02/10/24 03:01 WBC 9.3 RBC 4.49 Hgb 12.9 Hct 39.2 MCV 87.3 MCH 28.7 MCHC 32.9 RDW Std Deviation 40.8 RDW Coeff of Franco 12.7 Plt Count 274 MPV 10.1 Immature Gran % (Auto) 0.200 Neut % (Auto) 50.7 Lymph % (Auto) 36.8 [place] % (Auto) 8.9 Eos % (Auto) 2.9 Baso % (Auto) 0.5 Absolute Neuts (auto) 4.7 Absolute Lymphs (auto) 3.40 Nucleated RBC % 0 D-Dimer Quant (PE/DVT) 0.38 Sodium 139 Potassium 3.9 Chloride 106 Carbon Dioxide 27.0 Anion Gap 6 BUN 13 Creatinine 0.72 Estim Creat Clear Calc 160.38 Est GFR (MDRD) Af Amer 123 Est GFR (MDRD) Non-Af 101 BUN/Creatinine Ratio 18.2 Glucose 82 Calcium 9.2 Troponin I High Sens 4 Radiography Chest X-Ray - ED: 2 View, Read by ED Physician, Read by Radiologist and No Acute Disease Diagnostic Testing: Clinical Impression(s) from Imaging Studies Chest X-Ray 02/10/24 03:15 IMPRESSION: No radiographic evidence of acute cardiopulmonary disease. Electronically Signed: Patricia Us MD at 4:48 EST Reading Location ID and State: [facility] / [place] , Service support , [place] and lateral chest x-ray was obtained. There are 2 views. On my independent interpretation, lung king are clear. There is normal cardiac silhouette. Bony thorax is normal. There is no acute process noted. Radiologist also interpreted the x-ray and agrees. EKG Initial EKG: Attestation: I personally reviewed and interpreted this EKG as follows: Interpretation: Sinus Rhythm (82) and No Acute Injury Pattern Comments: EKG was obtained. On my independent interpretation, it showed a normal sinus rhythm with a rate of 82. PA interval, QRS interval, and QTc intervals were all normal. [place] was normal. There are no acute ST or T wave changes. Prior EKG tracings: available for review Prior: Unchanged (02/05/2023) Treatment and Re-Evaluation :: Patient was given a DuoNeb aerosol here. Patient states she still felt like she was having some shortness of breath. Patient was given a repeat aerosol. Patient was advised of her findings. Patient was advised that this is most likely a viral upper respiratory infection. Patient was advised there is no indication for admission to the hospital. Patient was instructed to drink plenty of fluids. Patient was instructed to take Tylenol or ibuprofen as needed for pain. Patient was given a prescription for an albuterol inhaler. Patient was instructed to follow-up with her primary care physician in 3 to 5 days. Patient was instructed to return if worse in any way. Patient understood and was agreeable with the plan. All questions were answered. Discharge Plan Triage Chief Complaint: Shortness of Breath ED Provider: Freddie Mays Dx/Rx/DC Orders Clinical Impression: Viral respiratory illness, Dyspnea Instructions: ED Asthma, Acute (Adult), ED Bronchitis, No Antibiotic (Adult) Prescriptions: Continued albuterol sulfate [Ventolin HFA] 90 mcg/actuation HFA aerosol inhaler 1 - 2 puff inhalation Q4H PRN PRN (Reason: Wheezing) Qty: 1 0RF No Action celecoxib [Celebrex] 200 mg capsule 200 mg PO BID PRN (Reason: pain) 30 Days Qty: 60 0RF phentermine 37.5 mg tablet 37.5 mg PO DAILY trazodone 100 mg tablet 100 mg PO QHS Primary Care Provider: Care Physician,No Primary Referrals: [facility] Doctor,Out of [Non-Staff] - 3-5 Days Print Language: Ethiopian Disposition Disposition: Home, Self Care
--- NOTE | 2024-02-10 03:15 | EKG12_ITS ---
Test Reason : sob Blood Pressure : */* mmHG Vent. Rate : 82 BPM Atrial Rate : 82 BPM P-R Int : 154 ms QRS Dur : 92 ms QT Int : 384 ms P-R-T Axes : 10 30 50 degrees QTcB Int : 448 ms Normal sinus rhythm Normal ECG Confirmed by Enrico Brooke ([id number]), map editor NICHOLAS MAYO ([id number]) on 02/11/2024 10:43:17 AM Referred By: Es Confirmed By: Enrico Brooke
--- NOTE | 2024-02-10 03:15 | RAD_ITS ---
STUDY: X-RAY CHEST REASON FOR EXAM: Female, 28 years old patient with dyspnea. TECHNIQUE: PA and lateral views of the chest. COMPARISON: November 22, 2021. FINDINGS: The lungs are clear and expanded. There is no demonstrated pleural abnormality. Normal size heart. Normal mediastinum and willie. Normal visualized pulmonary arteries. Normal visualized aortic arch and descending thoracic aorta. Normal visualized thoracic spine. Normal visualized ribs, clavicles, and shoulders. There is no demonstrated abnormality of the visualized soft tissue structures of the upper abdomen. RAD/Chest PA and Lateral IMPRESSION: No radiographic evidence of acute cardiopulmonary disease. Electronically Signed: Patricia Us MD at 4:48 EST ,
[2024-02-10] MEDS: Ipratropium/Albuterol Sulfate 3 ML AMPUL.NEB INHALATION (03:21)
[2024-02-10 03:24] LABS: Absolute Neutrophil Count 4.7 X10^3/uL (2.0-7.7); Basophil# 0.05 X10^3/uL; Basophil% 0.5 % (0-1); Eosinophil# 0.27 X10^3/uL; Eosinophils% 2.9 % (0-5); Hematocrit 39.2 % (37-47); Hemoglobin 12.9 g/dL (12.0-15.0); Lymphocyte % 36.8 % (19-41); Mean Corp Hgb Conc 32.9 g/dL (32-36); Mean Corpuscular Hgb 28.7 pg (27.0-32.0); Mean Corpuscular Volume 87.3 fL (81-99); Mean Platelet Vol. 10.1 fl (6.2-12.0); Monocyte# 0.82 X10^3/uL; Monocyte% 8.9 % (0-10); NRBC Flagged by Analyzer 0 % (0-5); Neutrophil # 4.69 X10^3/uL (2.7-7.7); Neutrophil % 50.7 % (47-70); Platelet Count 274 K/mm3 (150-450); RBC Distribution Width CV 12.7 % (11.6-14.6); RBC Distribution Width SD 40.8 fl (35.1-43.9); Red Blood Count 4.49 M/mm3 (4.2-5.4); White Blood Count 9.3 K/mm3 (4.4-11.0)
[2024-02-10 03:30] VITALS: PULSE 91; RESP 18
[2024-02-10 03:38] LABS: D-Dimer Quantitative (DVT/PE) 0.38 FEU/ug/m (0.27-0.49)
[2024-02-10 03:54] LABS: Anion Gap 6 (5-15); BUN 13 mg/dL (7-18); BUN/Creat Ratio 18.2 RATIO (10-20); Calcium,Total 9.2 mg/dL (8.5-10.1); Chloride 106 mmol/L (98-107); Creatinine, Serum 0.72 mg/dL (0.55-1.02); EST Glomerular Filtration Rate 101 mL/min (>60); Est Glom Filt Rate - Afr Amer 123 mL/min (>60); Estimated Creatinine Clearance 160.38 ml/min; Glucose 82 mg/dL (74-106); Potassium 3.9 mmol/L (3.5-5.1); Sodium Level 139 mmol/L (136-145); Troponin-I HS 4 pg/mL (3.0-54.0)
[2024-02-10 04:55] VITALS: BP 118/47; PULSE 79; RESP 19; O2SAT 100
[2024-02-10] MEDS: Albuterol 2.5 MG/3 ML VIAL.NEB. INHALATION (04:55)
[2024-02-10 04:56] VITALS: PULSE 92; RESP 18
[2024-02-10 05:36] VITALS: BP 120/67; PULSE 81; RESP 18; TEMP 36.6; O2SAT 97
== END 2024-02-10 05:38 | disposition home or self-care (01) ==
PROVIDERS: Emergency Provider Emergency Medicine; Visit Provider Emergency Medicine
DX: B34.9 Viral infection, unspecified (principal); G80.9 Cerebral palsy, unspecified; R06.00 Dyspnea, unspecified; J45.909 Unspecified asthma, uncomplicated; Z87.891 Personal history of nicotine dependence
CPT/HCPCS: 71046; 80048; 84484; 85025; 85379; 93005; 94640; 99284; A4216